=== PATIENT | female | born 1965 | race Caucasian/White ===

== ENCOUNTER 2020-01-28 06:45 | Outpatient (REF) | payer OTHER, SELFPAY ==
[2020-01-28 07:46] LABS: Hematocrit 42.7 % (37-47); Hemoglobin 14.4 g/dl (12.0-16.0); Mean Corpuscular HGB Conc 33.7 g/dl (31.0-35.0); Mean Corpuscular Hemoglobin 29.6 pg (27.0-33.0); Mean Corpuscular Volume 87.9 fL (80-98); Mean Platelet Volume 9.5 fL (9.4-12.3); Platelet Count 279 X10*3/uL (160-400); Red Blood Count 4.86 X10*6/uL (4.20-5.50); Red Cell Distribution Width 12.6 % (11.0-16.0); White Blood Count 5.5 X10*3/uL (4.8-10.8)
[2020-01-28 08:44] LABS: Alanine Aminotransferase 14 U/L (0-31); Albumin Level 4.4 g/dL (3.5-5.0); Alkaline Phosphatase 61 U/L (39-117); Anion Gap 12 (12-20); Aspartate Amino Transferase 15 U/L (5-31); Bilirubin Total 0.6 mg/dL (0.0-1.0); Blood Urea Nitrogen 15 mg/dL (9-16); Calcium 9.4 mg/dL (8.4-10.2); Carbon Dioxide 30 mmol/L (22-29); Chloride 103 mmol/L (96-108); Cholesterol 190 mg/dL; Estimated Glomerular Filt Rate > 60; Glucose Fasting 105 mg/dL (60-99); HDL Cholesterol 69 mg/dL; LDL Cholesterol Calculated 110 mg/dl; Potassium 4.9 mmol/l (3.3-5.1); Sodium 140 mmol/L (135-145); Total Protein 7.1 g/dL (6.5-8.0); Triglycerides 59 mg/dL
[2020-02-01 08:34] LABS: HIV AB/AG Nonreactive (Nonreactive); HIV Num 1 0.06 S/CO (0.00-0.99)
[2020-02-01 09:41] LABS: ~HepC Num1 0.12 S/CO (0.00-0.79); ~Hepatitis C Antibody Nonreactive (Nonreactive)
== END 2020-01-28 06:46 | disposition home or self-care (01) ==
LOC: HO.LAB 06:45
PROVIDERS: PCP Nurse Practitioner Family; Visit Provider Nurse Practitioner Family
DX: Z00.00 Encounter for general adult medical examination without abnormal findings (principal); Z11.4 Encounter for screening for human immunodeficiency virus [HIV]; E78.2 Mixed hyperlipidemia
CPT/HCPCS: 36415; 80053; 80061; 85027; 86803; 87389

== ENCOUNTER 2020-03-14 12:47 | Outpatient (REF) | payer OTHER, SELFPAY ==
--- NOTE | 2020-03-14 | MM_ITS ---
EXAMINATION: BONE DENSITOMETRY CLINICAL INDICATION: Estrogen excess. COMPARISON: This is the patient's baseline examination. TECHNIQUE: Using a [employer] ([employer] DXA System (software version: 13.1) manufactured by [employer], dual-energy x-ray absorptiometry was performed of the lumbar spine and left hip. The images are of good technical quality. Summary results are attached. FINDINGS: AP SPINE L1-L4: BMD 0.975 g/cm2, Z-score -1.1, T-score -1.7, osteopenia. LEFT FEMUR, NECK: BMD 0.624 g/cm2, Z-score -2.1, T-score -3.0, osteoporosis. LEFT FEMUR, TOTAL: BMD 0.602 g/cm2, Z-score -2.7, T-score -3.2, osteoporosis. IDENTIFIED RISK FACTORS: Low calcium intake, menopause. HISTORY OF FRACTURE: None listed. MEDICATIONS: None listed. MM/XR DEXA axial skeleton IMPRESSION: 1. DIAGNOSIS: Osteoporosis based on the lowest T-score value of -3.2 in the total femur applying World Health Organization criteria. 2. 10-YEAR FRACTURE RISK PREDICTION, FRAX: Major osteoporotic fracture (clinical spine, forearm, hip or shoulder) 11.9%. Hip fracture 3.2%. 3. Treatment Recommendations: NOF guidelines recommend consideration for treatment in postmenopausal women and men age 50 and older presenting with the following: -A hip or vertebral (clinical or morphometric) fracture. -T-score less than or equal to -2.5 at the femoral neck or spine after appropriate evaluation to exclude secondary causes. -Low bone mass at the hip or spine and a 10-year fracture probability by FRAX of greater than or equal to 3% for hip fracture or greater than or equal to 20% for major osteoporotic fracture based on the [place] adapted WHO algorithm. 4. Other Recommendations: All treatment decisions require clinical judgment and consideration of individual patient factors, including patient preferences, comorbidities, previous drug use, risk factors not captured in the FRAX model (e.g. frailty, falls, vitamin D deficiency, increased bone turnover, interval significant decline in bone density) and possible under or overestimation of fracture risk by FRAX. Additional medical evaluation for secondary cause of low bone mineral density may be appropriate. FUTURE SCAN RECOMMENDATION: People with diagnosed cases of osteoporosis or at high risk for fracture should have regular bone mineral density tests. For patients eligible for Medicare, routine testing is allowed once every 2 years. The testing frequency can be increased to one year for patients who have rapidly progressing disease, those who are receiving or discontinuing medical therapy to restore bone mass, or have additional risk factors.
--- NOTE | 2020-03-14 | MM_ITS ---
EXAMINATION: MM SCREENING DIGITAL BREAST TOMOSYNTHESIS, BILATERAL CLINICAL INFORMATION: Screening. Asymptomatic. The lifetime risk of breast cancer based on the Tyrer-Cuzick Model is 10%. COMPARISON: Mammography: 07/07/2018, 06/13/2017 TECHNIQUE: Digital breast tomosynthesis is performed in both the craniocaudal and mediolateral oblique views along with computer-aided detection (CAD). Synthesized 2D images are generated from the tomosynthesis. FINDINGS: There are scattered areas of fibroglandular density (ACR BI-RADS breast composition Category b). There are no significant masses, abnormal calcifications, or other abnormalities. Parenchymal pattern is similar to prior exams. No significant changes. MM/MM tomosynthesis screening BI IMPRESSION: No mammographic evidence of malignancy. ASSESSMENT: BI-RADS 1: Negative RECOMMENDATION: Routine annual mammography screening. This patient's information was entered into a reminder system with a target due date for their next mammogram.
== END 2020-03-14 12:48 | disposition home or self-care (01) ==
LOC: HO.MAMMO 12:47
PROVIDERS: PCP Nurse Practitioner Family; Visit Provider Nurse Practitioner Family
DX: E28.0 Estrogen excess (principal); Z12.31 Encounter for screening mammogram for malignant neoplasm of breast
CPT/HCPCS: 77063; 77067; 77080

== ENCOUNTER 2020-04-07 07:04 | Outpatient (REF) | payer OTHER, SELFPAY ==
[2020-04-07 08:15] LABS: Vitamin D 25-OH Total 22.4 ng/mL (>30)
== END 2020-04-07 07:05 | disposition home or self-care (01) ==
LOC: HO.LAB 07:04
PROVIDERS: PCP Nurse Practitioner Family; Visit Provider Nurse Practitioner Family
DX: M81.0 Age-related osteoporosis without current pathological fracture (principal)
CPT/HCPCS: 82306

== ENCOUNTER 2021-03-20 14:52 | Outpatient (REF) | payer OTHER, SELFPAY ==
--- NOTE | ~2021-03-20 | MM_ITS ---
EXAMINATION: MM SCREENING DIGITAL BREAST TOMOSYNTHESIS, BILATERAL CLINICAL INFORMATION: Screening. Asymptomatic. The lifetime risk of breast cancer based on the Tyrer-Cuzick Model is 9%. COMPARISON: Mammography: 03/14/2020, 07/07/2018, 06/13/2017 TECHNIQUE: Digital breast tomosynthesis is performed in both the craniocaudal and mediolateral oblique views along with computer-aided detection (CAD). Synthesized 2D images are generated from the tomosynthesis. FINDINGS: There are scattered areas of fibroglandular density (ACR BI-RADS breast composition Category b). There are no significant masses, abnormal calcifications, or other abnormalities. No developing density or significant changes from prior studies. MM/MM tomosynthesis screening BI IMPRESSION: No mammographic evidence of malignancy. ASSESSMENT: BI-RADS 1: Negative RECOMMENDATION: Routine annual mammography screening. This patient's information was entered into a reminder system with a target due date for their next mammogram.
== END 2021-03-20 14:53 | disposition home or self-care (01) ==
LOC: HO.MAMMO 14:52
PROVIDERS: Visit Provider Nurse Practitioner Family
DX: Z12.31 Encounter for screening mammogram for malignant neoplasm of breast (principal)
CPT/HCPCS: 77063; 77067

== ENCOUNTER 2021-05-18 06:51 | Outpatient (REF) | payer OTHER, SELFPAY ==
--- NOTE | ~2021-05-18 | XR_ITS ---
EXAMINATION: XR CERVICAL SPINE CLINICAL INFORMATION: Neck stiffness and pain. COMPARISON: None TECHNIQUE: 6 views of the cervical spine, inclusive of bilateral oblique views, were obtained. FINDINGS: There is mild curvature of the lower cervical and upper thoracic spine to the right. Bone alignment is otherwise normal. No fracture or dislocation is seen. There is mild degenerative spondylosis at C5-C6 and C6-C7. There is mild disc space narrowing at C6-C7. There is mild right-sided neuroforaminal narrowing from bony osteophyte at C6-C7. There is left-sided neuroforaminal narrowing from bony osteophyte at C4-C5 and C6-C7. Prevertebral soft tissues are normal. XR/XR cervical spine min 6V IMPRESSION: Scoliosis and degenerative changes.
[2021-05-18 07:04] LABS: MANUAL DIFF FLAG NO
[2021-05-18 07:27] LABS: Basophils Absolute Auto 0.1 X10*3/uL (0.0-0.2); Basophils Percent Auto 0.8 % (0-2); Eosinophils Absolute Auto 0.2 X10*3/uL (0.0-0.4); Hematocrit 44.7 % (37.0-47.0); Hemoglobin 14.9 g/dl (12.0-16.0); Imm Gran Abs Auto 0.02 X10*3/uL (0.00-0.03); Imm Gran Pct Auto 0.3 % (0.0-0.4); Lymphocytes Absolute Auto 1.4 X10*3/uL (1.2-4.9); Lymphocytes Percent Auto 18.9 % (20-40); Mean Corpuscular HGB Conc 33.3 g/dl (31.0-35.0); Mean Corpuscular Hemoglobin 29.2 pg (27.0-33.0); Mean Corpuscular Volume 87.6 fL (80.0-98.0); Mean Platelet Volume 9.3 fL (9.4-12.3); Monocytes Absolute Auto 0.7 X10*3/uL (0.1-1.2); Neutrophils Absolute Auto 5.1 x10*3/uL (2.0-8.3); Platelet Count 318 X10*3/uL (160-400); Red Cell Distribution Width 12.7 % (11.0-16.0); White Blood Count 7.4 X10*3/uL (4.8-10.8)
[2021-05-18 07:58] LABS: Alanine Aminotransferase 14 U/L (0-31); Albumin Level 4.2 g/dL (3.5-5.0); Alkaline Phosphatase 64 U/L (39-117); Anion Gap 13 (12-20); Aspartate Amino Transferase 16 U/L (5-31); Bilirubin Total 0.5 mg/dL (0.0-1.0); Blood Urea Nitrogen 17 mg/dL (9-16); Calcium 10.1 mg/dL (8.4-10.2); Carbon Dioxide 29 mmol/L (22-29); Chloride 101 mmol/L (96-108); Cholesterol 232 mg/dL; Estimated Glomerular Filt Rate > 60; Glucose Random 106 mg/dL (60-115); HDL Cholesterol 63 mg/dL; LDL Cholesterol Calculated 153 mg/dl; Potassium 5.6 mmol/L (3.3-5.1); Sodium 137 mmol/L (135-145); Total Protein 7.2 g/dL (6.5-8.0); Triglycerides 83 mg/dL
[2021-05-18 08:23] LABS: Thyroid Stimulating Hormone 1.44 uIU/mL (0.32-4.0)
[2021-05-18 09:45] LABS: Vitamin B12 389 pg/mL (200-900)
== END 2021-05-18 06:52 | disposition home or self-care (01) ==
LOC: HO.LAB 06:51
PROVIDERS: PCP Nurse Practitioner Family; Visit Provider Nurse Practitioner Family
DX: Z00.00 Encounter for general adult medical examination without abnormal findings (principal); E78.2 Mixed hyperlipidemia; R41.89 Other symptoms and signs involving cognitive functions and awareness; M43.6 Torticollis
CPT/HCPCS: 36415; 72052; 80053; 80061; 82607; 84443; 85025

== ENCOUNTER 2021-07-13 07:02 | Outpatient (REF) | payer OTHER, SELFPAY ==
[2021-07-13 08:33] LABS: Potassium 4.8 mmol/L (3.3-5.1)
== END 2021-07-13 07:03 | disposition home or self-care (01) ==
LOC: HO.LAB 07:02
PROVIDERS: PCP Nurse Practitioner Family; Visit Provider Nurse Practitioner Family
DX: E87.5 Hyperkalemia (principal)
CPT/HCPCS: 36415; 84132

== ENCOUNTER 2022-01-11 11:17 | Day surgery (SDC) | payer OTHER, SELFPAY ==
--- NOTE | 2022-01-11 13:42 | P.OP_ITS ---
Operative Note Operative Note Date of Service: 01/11/22 Narrative: Operative Note Preop diagnosis: 1. Right ring finger Trigger finger Postop diagnosis: 1. right ring finger Trigger finger Procedure: 1. right ring finger A1 britany release Surgeon: Hiral Payne MD Anesthesia: local block using 1% lidocaine with epinephrine Findings: No locking or catching after A1 britany release EBL: Less than 5 mL Tourniquet time: None Specimens: None Complications: None Disposition: Brought to recovery room in stable condition Plan: Follow-up for 10-14 days for wound check and suture removal Indications: The patient is 56 years old, with a right ring finger trigger finger that has been unresponsive to nonoperative management. The risks and benefits of operative treatment including but not limited to risk of damage to blood vessels, nerves, tendons, infection, persistent pain, persistent symptoms, recurrence or possible need for additional surgery were discussed with the patient and the patient wishes to proceed with surgery. Procedure: Once consent was obtained a local block was performed in the preop area using a combination of 1% lidocaine with epinephrine. The patient was then brought back to the operating suite and placed on the operative table in supine position. A tourniquet was applied to the proximal aspect of the right upper extremity and the limb was prepped and draped in a standard surgical fashion. Once assured that we had a good block, a 1.5 cm oblique incision was made centered over the A1 britany of the right ring finger . The incision was made through the skin to the subcutaneous tissues using a #15 blade. Careful dissection was made down to the level of the A1 britany using tenotomy scissors, with care being taken to protect the nearby neurovascular structures. A longitudinal incision was made in the A1 britany 1st using a #15 blade, then using tenotomy scissors under direct visualization. The A1 britany was noted to be thickened. Following our A1 britany release, we no longer saw any locking or catching of the digit with flexion and extension. Once satisfied with our A1 britany release the wound was copiously irrigated with normal saline and hemostasis was obtained with a brief period of local pressure. The skin edges were reapproximated with some 5.0 nylon suture material and a sterile dressing was applied. The patient appears to have tolerated the procedure well and with no c omplications. All digits were well vascularized at the conclusion of the case.
--- NOTE | 2022-01-11 13:42 | MHC.SHP ---
Pre-Procedural Eval Section A Date of Service: 01/11/22 The patient is an INPATIENT: No Changes since office visit: No Cold of Flu in the past 2 weeks, No New Medical Problems, No Changes in Medication and No Patient answered all questions The History & Physical has been completed within 30 days and I have reviewed it.: Yes Section B Chief Complaint: trigger finger Allergies: Allergies Allergy/AdvReac Type Severity Reaction Status Date / Time No Known Allergies Allergy Verified 01/10/22 09:39 Plan I have reviewed the history and physical and performed a pertinent physical examination on my patient. No changes have occurred unless specified.
[2022-01-11 15:27] VITALS: BP 145/71; PULSE 50; RESP 18; TEMP 36.2
== END 2022-01-11 15:28 | disposition home or self-care (01) ==
PROVIDERS: PCP Nurse Practitioner Family; Visit Provider Orthopaedic Surgery
PROC: (CPT 26055; principal; 2022-01-11 13:50)
DX: M65.341 Trigger finger, right ring finger (principal)
CPT/HCPCS: 26055; J0171

== ENCOUNTER 2022-03-22 15:36 | Outpatient (REF) | payer OTHER, SELFPAY ==
--- NOTE | ~2022-03-22 | MM_ITS ---
EXAMINATION: MM SCREENING DIGITAL BREAST TOMOSYNTHESIS, BILATERAL CLINICAL INFORMATION: Screening. Asymptomatic. The lifetime risk of breast cancer based on the Tyrer-Cuzick Model is 10.1%. COMPARISON: Mammography: March 20, 2021 and studies dating back to October 17, 2015 TECHNIQUE: Digital breast tomosynthesis is performed in both the craniocaudal and mediolateral oblique views along with computer-aided detection (CAD). Synthesized 2D images are generated from the tomosynthesis. FINDINGS: There are scattered areas of fibroglandular density (ACR BI-RADS breast composition Category b). There are no significant masses, abnormal calcifications, or other abnormalities. MM/MM tomosynthesis screening BI IMPRESSION: No significant changes from prior exam. ASSESSMENT: BI-RADS 1: Negative RECOMMENDATION: Routine annual mammography screening. This patient's information was entered into a reminder system with a target due date for their next mammogram.
== END 2022-03-22 15:37 | disposition home or self-care (01) ==
LOC: HO.MAMMO 15:36
PROVIDERS: PCP Nurse Practitioner Family; Visit Provider Nurse Practitioner Family
DX: Z12.31 Encounter for screening mammogram for malignant neoplasm of breast (principal)
CPT/HCPCS: 77063; 77067

== ENCOUNTER 2022-05-25 09:28 | Outpatient (REF) | payer OTHER, SELFPAY ==
--- NOTE | ~2022-05-25 | MM_ITS ---
EXAMINATION: BONE DENSITOMETRY CLINICAL INDICATION: Age-related osteoporosis without current pathological fracture. COMPARISON: Baseline BD dated 03/14/2020. TECHNIQUE: Using a [employer] DXA System (software version: 13.1) manufactured by [employer], dual-energy x-ray absorptiometry was performed of the lumbar spine and left hip. The images are of good technical quality. Summary results are attached. FINDINGS: AP SPINE L1-L4: Current: BMD 0.936 g/cm2, Z-score -1.4, T-score -2.0, osteopenia, 4.0% decrease from baseline (<5% change is not significant). Baseline: BMD 0.975 g/cm2. LEFT FEMUR, NECK: Current: BMD 0.837 g/cm2, Z-score -0.5, T-score -1.4, osteopenia. Baseline: BMD 0.624 g/cm2. LEFT FEMUR, TOTAL: Current: BMD 0.897 g/cm2, Z-score -0.3, T-score -0.9, normal, 49.0% increase from baseline (<5% change is not significant). Baseline: BMD 0.602 g/cm2. IDENTIFIED RISK FACTORS: Low calcium intake. Menopause. HISTORY OF FRACTURE: None listed. MEDICATIONS: Calcium supplement or multivitamin. Vitamin D. MM/XR DEXA axial skeleton IMPRESSION: 1. DIAGNOSIS: Osteopenia based on the lowest T-score value of -2.0 in the lumbar spine applying World Health Organization criteria. 2. 10-YEAR FRACTURE RISK PREDICTION, FRAX: Major osteoporotic fracture (clinical spine, forearm, hip or shoulder) 17.3%. Hip fracture 0.6%. 3. Treatment Recommendations: NOF guidelines recommend consideration for treatment in postmenopausal women and men age 50 and older presenting with the following: -A hip or vertebral (clinical or morphometric) fracture. -T-score less than or equal to -2.5 at the femoral neck or spine after appropriate evaluation to exclude secondary causes. -Low bone mass at the hip or spine and a 10-year fracture probability by FRAX of greater than or equal to 3% for hip fracture or greater than or equal to 20% for major osteoporotic fracture based on the [place] adapted WHO algorithm. 4. FUTURE SCAN RECOMMENDATION: People with diagnosed cases of osteoporosis or at high risk for fracture should have regular bone mineral density tests. For patients eligible for Medicare, routine testing is allowed once every 2 years. The testing frequency can be increased to one year for patients who have rapidly progressing disease, those who are receiving or discontinuing medical therapy to restore bone mass, or have additional risk factors.
== END 2022-05-25 09:29 | disposition home or self-care (01) ==
LOC: HO.MAMMO 09:28
PROVIDERS: Visit Provider Nurse Practitioner Family
DX: Z13.820 Encounter for screening for osteoporosis (principal); Z78.0 Asymptomatic menopausal state; M81.0 Age-related osteoporosis without current pathological fracture
CPT/HCPCS: 77080

== ENCOUNTER 2022-06-08 06:49 | Outpatient (REF) | payer OTHER, SELFPAY ==
[2022-06-08 07:33] LABS: Hematocrit 43.2 % (37.0-47.0); Hemoglobin 14.6 g/dl (12.0-16.0); Mean Corpuscular HGB Conc 33.8 g/dl (31.0-35.0); Mean Corpuscular Hemoglobin 29.3 pg (27.0-33.0); Mean Corpuscular Volume 86.7 fL (80.0-98.0); Mean Platelet Volume 9.5 fL (9.4-12.3); Platelet Count 278 X10*3/uL (160-400); Red Blood Count 4.98 X10*6/uL (4.20-5.50); White Blood Count 6.7 X10*3/uL (4.8-10.8)
[2022-06-08 08:06] LABS: Alanine Aminotransferase 14 U/L (0-31); Alkaline Phosphatase 69 U/L (39-117); Anion Gap 15 (12-20); Aspartate Amino Transferase 14 U/L (5-31); Bilirubin Total 0.6 mg/dL (0.0-1.0); Blood Urea Nitrogen 14 mg/dL (9-16); Calcium 9.2 mg/dL (8.4-10.2); Carbon Dioxide 25 mmol/L (22-29); Chloride 106 mmol/L (96-108); Cholesterol 182 mg/dL; Estimated Glomerular Filt Rate > 60; Glucose Fasting 103 mg/dL (60-99); HDL Cholesterol 64 mg/dL; LDL Cholesterol Calculated 105 mg/dl; Potassium 4.5 mmol/L (3.3-5.1); Sodium 141 mmol/L (135-145); Total Protein 6.7 g/dL (6.5-8.0); Triglycerides 67 mg/dL
[2022-06-08 08:27] LABS: Vitamin B12 465 pg/mL (200-900)
== END 2022-06-08 06:50 | disposition home or self-care (01) ==
LOC: HO.LAB 06:49
PROVIDERS: PCP Nurse Practitioner Family; Visit Provider Nurse Practitioner Family
DX: Z00.00 Encounter for general adult medical examination without abnormal findings (principal); E78.2 Mixed hyperlipidemia; E53.8 Deficiency of other specified B group vitamins
CPT/HCPCS: 36415; 80053; 80061; 82607; 85027

== ENCOUNTER → 2022-09-18 15:41 | Outpatient (BNVA) | payer OTHER, SELFPAY | PROVIDERS: PCP Nurse Practitioner Family; Visit Provider Orthopaedic Surgery ==

== ENCOUNTER 2023-03-28 15:14 | Outpatient (REF) | payer OTHER, SELFPAY ==
--- NOTE | ~2023-03-28 | MM_ITS ---
EXAMINATION: MM SCREENING DIGITAL BREAST TOMOSYNTHESIS, BILATERAL CLINICAL INFORMATION: Screening. Asymptomatic. COMPARISON: Mammography: 03/22/2022, 03/20/2021, 03/14/2020, 07/07/2018, 06/13/2017 TECHNIQUE: Digital breast tomosynthesis is performed in both the craniocaudal and mediolateral oblique views along with computer-aided detection (CAD). Synthesized 2D images are generated from the tomosynthesis. FINDINGS: There are scattered areas of fibroglandular density (ACR BI-RADS breast composition Category b). There are bilateral skin calcifications. These are benign. There are no suspicious masses, suspicious grouped calcifications, or areas of architectural distortion in either breast. The parenchymal pattern is stable from prior exams. Unchanged left axillary lymph node. No skin abnormality. MM/MM tomosynthesis screening BI IMPRESSION: No mammographic evidence of malignancy. Benign findings. ASSESSMENT: BI-RADS BI-RADS 2 - Benign Findings RECOMMENDATION: Routine annual mammography screening. 1 year F/U This examination should not preclude the clinical evaluation of a suspicious palpable abnormality. This patient's information was entered into a reminder system with a target due date for their next mammogram.
== END 2023-03-28 15:15 | disposition home or self-care (01) ==
LOC: HO.MAMMO 15:14
PROVIDERS: PCP Nurse Practitioner Family; Visit Provider Nurse Practitioner Family
DX: Z12.31 Encounter for screening mammogram for malignant neoplasm of breast (principal)
CPT/HCPCS: 77063; 77067

== ENCOUNTER → 2023-03-28 15:30 | Outpatient (BNV) | payer OTHER, SELFPAY | PROVIDERS: PCP Nurse Practitioner Family; Visit Provider Radiology Diagnostic Radiology | DX: Z12.31 Encounter for screening mammogram for malignant neoplasm of breast (principal) | CPT/HCPCS: 77063; 77067 ==

== ENCOUNTER 2023-11-27 08:51 | Outpatient (AMB) | payer OTHER, SELFPAY ==
--- NOTE | 2023-11-27 08:55 | MHC.PC.OV ---
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 Intake Note: New patient visit Central Supply Manager Required: No Allergies No Known Allergies Allergy (Verified 11/27/23 08:55) Medication List - Last Reconciled 11/27/23 by Leann Ortega PA-C atorvastatin 10 mg PO DAILY Tobacco use date assessed: 11/27/23 Dental Screening Dental Screen Date: 11/27/23 Did you have a dental visit in the last 12 months?: Yes Did you have a dental problem in the last 6 months where you did not have access to dental care?: No Was dental information given to patient?: Patient has dentist 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 She has a hx of dyslipidemia, anxiety and depression. CV: bp today is. She is on atorvastatin 10 mg and has been on this for a couple years. She tolerates this well. Psych: She is on lexapro 20 mg. Tried fluoxetine, sertraline and these were ineffective. She feels like lexapro takes the edge off but it was not perfect . It did not control her sx as much as she wouldve liked. Colonoscopy: Dr. Childs, 02/2016 had a polyp- recommended for q 5 years. Mammo: 04/13, UTD Pap: 1 year ago Bone density:osteopenia- over 2 years ago Brother lung ca (smoker)- brother #2 bladder ca, hep c, and prostate ca, carotid stenosis Father crust stenosis PFSH Medical History (Updated 11/27/23 @ 10:30 by Leann Ortega PA-C) Depression GERD (gastroesophageal reflux disease) Heart palpitations Anxiety High cholesterol Family History (Updated 11/27/23 @ 09:44 by Irish Fleming CMA) Father High cholesterol Mother Cardiovascular disease Other Bladder cancer Diabetes Lung cancer Prostate cancer Social History (Updated 11/27/23 @ 09:45 by Irish Fleming CMA) Housing: House Patient Tobacco Use Status: Former Tobacco user Cigarettes Per Day: 5 Years Smoked: 8 e-Cigarette/Vaping Use: Never Used service: No Current occupational status: employed Current occupation: [employer] in [employer]/ [employer] Current occupational exposures/hazards: No Cognitive needs: No Hearing needs: No Vision needs: Yes (reading glasses) Questionnaire PHQ-9 Over the last 2 weeks, how often have you been bothered by any of the following problems? 1. Little interest or pleasure in doing things: several days 2. Feeling down, depressed, or hopeless: several days 3. Trouble falling or staying asleep, or sleeping too much: several days 4. Feeling tired or having little energy: more than half the days 5. Poor appetite or overeating: more than half the days 7. Trouble concentrating on things, such as reading the newspaper or watching television: more than half the days 8. Moving or speaking so slowly that other people could have noticed. Or the opposite - being so fidgety or restless that you have been moving around a lot more than usual: several days 9. Thoughts that you would be better off or of hurting yourself in some way: not at all Depression Screening Interpretation: Positive Depression Screening Follow-up: Existing condition, In treatment and New Medication prescribed Depression Screening Done: Yes 83561 - PHQ-9 Billing: Yes Source: Developed by Drs. Hector Stroud, Herminia Bullard, Gigi Tsang and colleagues, with an educational april from [employer]. Thrive Questionnaire Date Thrive assessed: 11/27/23 I am a: Patient What is your living situation today?: I have a steady place to live Within the past 12 months, did the food you bought not last and you didn't have the money to get more?: Never true Within the past 12 months, did you worry whether your food would run out before you got money to buy more?: Never true Do you have trouble paying for medicines?: No Do you have trouble getting transportation to medical appointments?: No Do you have trouble paying your heating and electricity bill?: No Do you have trouble taking care of your child, family member or friend?: No Do you have trouble with day-to-day activities such as bathing, preparing meals, shopping, managing finances, etc.?: No Are you currently unemployed and looking for a job?: No Are you interested in more education?: No Please select the resources that you would like help with: None Currently or been in a relationship where the following occur: No concerns reported THRIVE Score: 0 AUDIT C Alcohol Use Questionnaire (AUDIT-C) 1. How often do you have a drink containing alcohol?: 2-3 times a week 2. How many drinks containing alcohol do you have on a typical day when you are drinking?: 1 or 2 3. How often do you have six or more drinks on one occasion?: Never Total Score: 3 JORDAN-7 AMB Questionnaire JORDAN-7 Date JORDAN - 7 assessed: 11/27/23 Feeling nervous, anxious, or on edge: 2 = More than half the days Not being able to stop or control worryin = Several days Worrying too much about different things: 1 = Several days Trouble relaxin = More than half the days Being so restless that it is hard to sit still: 1 = Several days Becoming easily annoyed or irritable: 1 = Several days Feeling afraid as if something awful might happen: 0 = Not at all Total JORDAN-7 score (0-4 normal; 5-9 mild; 10-14 moderate; 15-21 severe): 8 Source: Developed by Drs. Hector Stroud, Herminia Bullard, Gigi Tsang and colleagues, with an educational april from [employer]. JORDAN-7 Assessment Billing JORDAN-7 Assessment Tool: JORDAN-7 Assessment 36803 Physical exam (Primary Care) Vital Signs: Last Vital Signs Temp 97.8 F 11/27/23 09:04 Pulse 68 11/27/23 09:04 Resp 16 11/27/23 09:04 BP 126/72 11/27/23 09:04 Pulse Ox 97 11/27/23 09:04 Oxygen Delivery Method Room Air 11/27/23 09:04 BMI result Body Mass Index 35.5 Tobacco/Smoking Status: Tobacco use Status Tobacco use date assessed 11/27/23 11/27/23 08:57 Patient Tobacco Use Status Former Tobacco user 11/27/23 09:45 e-Cigarette/Vaping Use Never Used 11/27/23 09:45 Depression Screening Interpretation: Positive Depression Screening Follow-up: Existing condition, In treatment and New Medication prescribed Thrive Assessment: Date of Thrive Assessment Date Thrive assessed 11/27/23 11/27/23 09:45 Currently or been in a relationship where the following occur: No concerns reported Const Orientation/consciousness: patient oriented x3 HENMT Ears: hearing grossly normal bilaterally and TM's normal bilaterally General nose exam: No nasal polyps present Face and sinus: Yes sinuses nontender Mouth: Normal oral and palatal mucosa present Eyes Pupils: Equal, round and reactive pupils present EOM: EOMs intact bilaterally Neck Neck: Yes full ROM and Yes no lymphadenopathy Thyroid: Thyroid normal Chest Chest palpation & inspection: normal inspection of the chest Resp Auscultation: clear to auscultation bilaterally Cardio Rate: regular rate Rhythm: regular rhythm Heart sounds: S1 normal heart sound present and S2 normal heart sound present Peripheral pulses: Peripheral pulses 2+ throughout GI Other: Soft, nontender Auscultation: normal bowel sounds Rectal Exam - Female: deferred General: Yes no CVA tenderness Back/Spine/Pelvis Other: Nontender Back: no CVA tenderness Skin General skin exam: no rashes or lesions noted Neuro General: patient oriented x3, gait normal, CN's II-XI intact bilaterally and deep tendon reflexes 2+ bilaterally Cranial nerves: Yes Equal, round and reactive pupils present Motor exam (neuro): 5/5 motor strength present throughout Sensory Exam: double simultaneous stimulation for sensation normal Coordination: [id number] test normal and Romberg test negative Extrem General: Yes normal to inspection and Yes full ROM Psych Affect: normal affect Attitude: cooperative Thought process: Normal thought process present Thought content: Normal thought content present Insight: Good insight present (Psych) Judgement: Good judgement present (Psych) Assessment and Plan Assessment & Plan (1) Routine general medical examination at a health care facility: Code(s): Z00.00 - Encounter for general adult medical examination without abnormal findings Plan: Health maintenance reviewed. Colonoscopy ordered. Labs ordered today. (2) Generalized anxiety disorder: Code(s): F41.1 - Generalized anxiety disorder Plan: We will try Effexor. Discussed risks and benefits and adverse effects of this medication. Advised to seek emergent medical treatment should she develop any SI/HI. Follow up in 4 weeks. Sooner if needed. Patient understands and agrees with the plan. (3) Major depressive disorder, recurrent, mild: Code(s): F33.0 - Major depressive disorder, recurrent, mild Plan: As above (4) Osteopenia: Code(s): M85.80 - Other specified disorders of bone density and structure, unspecified site Qualifiers: Osteopenia location: unspecified Qualified Code(s): M85.80 - Other specified disorders of bone density and structure, unspecified site Plan: Bone density ordered. (5) Hypercholesteremia: Code(s): E78.00 - Pure hypercholesterolemia, unspecified Plan: Continue atorvastatin. Lipids and LFTs ordered. Orders: Orders XR DEXA axial skeleton Today Z78.0 - Asymptomatic menopausal state Comprehensive [place]. Panel Fast Today E78.00 - Pure hypercholesterolemia, unspecified, F41.1 - Generalized anxiety disorder, M85.80 - Other specified disorders of bone density and structure, unspecified site, Z00.00 - Encounter for general adult medical examination without abnormal findings TSH reflex Free T4 Today E78.00 - Pure hypercholesterolemia, unspecified, F41.1 - Generalized anxiety disorder, M85.80 - Other specified disorders of bone density and structure, unspecified site, Z00.00 - Encounter for general adult medical examination without abnormal findings Vitamin D 1,25 dihydroxy Today E78.00 - Pure hypercholesterolemia, unspecified, F41.1 - Generalized anxiety disorder, M85.80 - Other specified disorders of bone density and structure, unspecified site, Z00.00 - Encounter for general adult medical examination without abnormal findings Lipid Panel Today E78.00 - Pure hypercholesterolemia, unspecified, F41.1 - Generalized anxiety disorder, M85.80 - Other specified disorders of bone density and structure, unspecified site, Z00.00 - Encounter for general adult medical examination without abnormal findings Complete Blood Count Auto Diff Today E78.00 - Pure hypercholesterolemia, unspecified, F41.1 - Generalized anxiety disorder, M85.80 - Other specified disorders of bone density and structure, unspecified site, Z00.00 - Encounter for general adult medical examination without abnormal findings Referrals Open Access Screening Colonoscopy Referral Z12.11 - Encounter for screening for malignant neoplasm of colon, Z12.12 - Encounter for screening for malignant neoplasm of rectum Medications: New venlafaxine ER (Effexor XR) 37.5 mg PO DAILY 30 caps 1RF Coding Level of Care Code New Pt Prev Care 40-64y(65815) Diagnoses Routine general medical examination at a health care facility Z00.00 Generalized anxiety disorder F41.1 Major depressive disorder, recurrent, mild F33.0 Osteopenia, unspecified location M85.80 Osteopenia location: unspecified Hypercholesteremia E78.00 Additional Codes JORDAN-7 Assessment Billing - JORDAN-7 Assessment Tool: JORDAN-7 Assessment 28695 ([id number])
[2023-11-27 09:04] VITALS: BP 126/72; PULSE 68; RESP 16; TEMP 36.6; O2SAT 97; BMI 35.5
== END 2023-11-27 09:58 | disposition home or self-care (01) ==
PROVIDERS: Visit Provider Physician Assistant
DX: Z00.00 Encounter for general adult medical examination without abnormal findings (principal); F41.1 Generalized anxiety disorder; F33.0 Major depressive disorder, recurrent, mild; M85.80 Other specified disorders of bone density and structure, unspecified site; E78.00 Pure hypercholesterolemia, unspecified
CPT/HCPCS: 96127; 99386

== ENCOUNTER 2023-12-04 07:14 | Outpatient (REF) | payer OTHER, SELFPAY ==
[2023-12-04 07:31] LABS: MANUAL DIFF FLAG NO
[2023-12-04 07:48] LABS: Basophils Absolute Auto 0.1 X10*3/uL (0.0-0.2); Basophils Percent Auto 0.8 % (0-2); Eosinophils Absolute Auto 0.2 X10*3/uL (0.0-0.4); Eosinophils Percent Auto 2.9 % (0-4); Hematocrit 43.5 % (37.0-47.0); Hemoglobin 14.8 g/dl (12.0-16.0); Imm Gran Abs Auto 0.02 X10*3/uL (0.00-0.03); Imm Gran Pct Auto 0.3 % (0.0-0.4); Lymphocytes Absolute Auto 1.3 X10*3/uL (1.2-4.9); Lymphocytes Percent Auto 21.7 % (20-40); Mean Corpuscular Hemoglobin 29.4 pg (27.0-33.0); Mean Corpuscular Volume 86.3 fL (80.0-98.0); Mean Platelet Volume 9.2 fL (9.4-12.3); Monocytes Absolute Auto 0.5 X10*3/uL (0.1-1.2); Monocytes Percent Auto 8.6 % (2-11); Neutrophils Absolute Auto 3.9 x10*3/uL (2.0-8.3); Neutrophils Percent Auto 65.7 % (45-73); Platelet Count 279 X10*3/uL (160-400); Red Blood Count 5.04 X10*6/uL (4.20-5.50); Red Cell Distribution Width 12.9 % (11.0-16.0); White Blood Count 5.9 X10*3/uL (4.8-10.8)
[2023-12-04 08:08] LABS: Alanine Aminotransferase 21 U/L (0-31); Albumin Level 3.9 g/dL (3.5-5.0); Alkaline Phosphatase 65 U/L (39-117); Anion Gap 12 (12-20); Aspartate Amino Transferase 17 U/L (5-31); Bilirubin Total 0.6 mg/dL (0.0-1.0); Blood Urea Nitrogen 15 mg/dL (9-16); Calcium 9.6 mg/dL (8.4-10.2); Carbon Dioxide 27 mmol/L (22-29); Chloride 105 mmol/L (96-108); Cholesterol 164 mg/dL (<200); Estimated Glomerular Filt Rate > 60; Glucose Fasting 111 mg/dL (60-99); HDL Cholesterol 54 mg/dL (>40); LDL Cholesterol Calculated 100 mg/dL (<100); Potassium 4.6 mmol/L (3.3-5.1); Sodium 139 mmol/L (135-145); Total Protein 7.1 g/dL (6.5-8.0); Triglycerides 53 mg/dL (<150)
[2023-12-04 08:28] LABS: TSH reflex Free T4 1.17 uIU/mL (0.32-4.0)
[2023-12-09 15:08] LABS: VITAMIN D (1,25 OH) D3 26 pg/mL; Vit D (1,25-Dihydroxy) Total 26 pg/mL (18-72); Vitamin D (1,25 OH) D2 <8 pg/mL
== END 2023-12-04 07:15 | disposition home or self-care (01) ==
LOC: HO.LAB 07:14
PROVIDERS: PCP Physician Assistant; Visit Provider Physician Assistant
DX: Z00.00 Encounter for general adult medical examination without abnormal findings (principal); F41.1 Generalized anxiety disorder; M85.80 Other specified disorders of bone density and structure, unspecified site; E78.00 Pure hypercholesterolemia, unspecified
CPT/HCPCS: 36415; 80053; 80061; 82652; 84443; 85025

== ENCOUNTER 2023-12-18 06:56 | Outpatient (REF) | payer OTHER, SELFPAY ==
[2023-12-18 09:03] LABS: Estimated Average Glucose 114 mg/dL; Hemoglobin A1c % 5.6 % (<6.0)
== END 2023-12-18 06:57 | disposition home or self-care (01) ==
LOC: HO.LAB 06:56
PROVIDERS: PCP Physician Assistant; Visit Provider Physician Assistant
DX: R73.9 Hyperglycemia, unspecified (principal)
CPT/HCPCS: 36415; 83036

== ENCOUNTER 2023-12-25 15:05 | Outpatient (AMB) | payer OTHER, SELFPAY ==
[2023-12-25 15:25] VITALS: BP 104/64; PULSE 78; RESP 14; O2SAT 98; BMI 36.0
--- NOTE | 2023-12-25 15:25 | A.OFFPC_ITS ---
Vital Signs 12/25/23 15:25 Height 5 ft 0.63 in Weight 188 lb 4 oz BMI 36.0 BP 104/64 Blood Pressure Location Lt brachial Position Sitting Respiration 14 Pulse 78 Pulse Source Pulse Oximeter Pulse Oximetry (%) 98 Oxygen Delivery Method Room Air Intake Visit Reasons: Anxiety follow-up Intake Note: Anxiety follow up Model And Dye Person Required: No Allergies No Known Allergies Allergy (Verified 12/25/23 15:25) Tobacco use date assessed: 11/27/23 Dental Screening Dental Screen Date: 11/27/23 HPI Anxiety follow-up HPI Details Pt is a 58 y/o female who presents today to establish care and transferring today from [facility]. She has a hx of dyslipidemia, anxiety and depression. CV: bp today is 104/64. She is on atorvastatin 10 mg and has been on this for a couple years. She tolerates this well. Psych: At our last visit started her on venlafaxine. She states for the 1st 2 weeks she felt like this was helpful but now it just does not feel like it is doing much of anything. She tolerates it well. No SI/HI. Tried Lexapro, fluoxetine, sertraline and these were ineffective. She feels like lexapro takes the edge off but it was not perfect . It did not control her sx as much as she wouldve liked. Colonoscopy: Dr. Childs, 02/2016 had a polyp- recommended for q 5 years. Mammo: 04/13, UTD Pap: 1 year ago Bone density:osteopenia- over 2 years [facility] Medical History (Updated 12/04/23 @ 15:47 by Leann Ortega PA-C) Depression GERD (gastroesophageal reflux disease) Heart palpitations Anxiety High cholesterol Family History (Updated 11/27/23 @ 09:44 by Irish Fleming CMA) Father High cholesterol Mother Cardiovascular disease Other Bladder cancer Diabetes Lung cancer Prostate cancer Social History (Updated 11/27/23 @ 09:45 by Irish Fleming CMA) Housing: House Patient Tobacco Use Status: Former Tobacco user Cigarettes Per Day: 5 Years Smoked: 8 e-Cigarette/Vaping Use: Never Used service: No Current occupational status: employed Current occupation: [employer] in [employer]/ [employer] Current occupational exposures/hazards: No Cognitive needs: No Hearing needs: No Vision needs: Yes (reading glasses) Questionnaire PHQ-9 Over the last 2 weeks, how often have you been bothered by any of the following problems? 1. Little interest or pleasure in doing things: more than half the days 2. Feeling down, depressed, or hopeless: nearly every day 3. Trouble falling or staying asleep, or sleeping too much: not at all 4. Feeling tired or having little energy: more than half the days 5. Poor appetite or overeating: not at all 6. Feeling bad about yourself - or that you are a failure or have let yourself or your family down: not at all 7. Trouble concentrating on things, such as reading the newspaper or watching television: more than half the days 8. Moving or speaking so slowly that other people could have noticed. Or the opposite - being so fidgety or restless that you have been moving around a lot more than usual: not at all 9. Thoughts that you would be better off or of hurting yourself in some way: not at all Total score: 9 Depression Screening Interpretation: Positive Depression Screening Done: Yes 31888 - PHQ-9 Billing: Yes Source: Developed by Drs. Hector Stroud, Herminia Bullard, Gigi Tsang and colleagues, with an educational april from [employer]. Thrive Questionnaire Date Thrive assessed: 11/27/23 JORDAN-7 AMB Questionnaire JORDAN-7 Date JORDAN - 7 assessed: 12/25/23 Feeling nervous, anxious, or on edge: 3 = Nearly every day Not being able to stop or control worryin = More than half the days Worrying too much about different things: 2 = More than half the days Trouble relaxin = Nearly every day Being so restless that it is hard to sit still: 1 = Several days Becoming easily annoyed or irritable: 2 = More than half the days Feeling afraid as if something awful might happen: 1 = Several days Total JORDAN-7 score (0-4 normal; 5-9 mild; 10-14 moderate; 15-21 severe): 14 Source: Developed by Drs. Hector Stroud, Herminia Bullard, Gigi Tsang and colleagues, with an educational april from [employer]. JORDAN-7 Assessment Billing JORDAN-7 Assessment Tool: JORDAN-7 Assessment 28937 Physical exam (Primary Care) Vital Signs: Last Vital Signs Pulse 78 12/25/23 15:25 Resp 14 12/25/23 15:25 BP 104/64 12/25/23 15:25 Pulse Ox 98 12/25/23 15:25 Oxygen Delivery Method Room Air 12/25/23 15:25 BMI result Body Mass Index 36.0 Tobacco/Smoking Status: Tobacco use Status Tobacco use date assessed 11/27/23 12/25/23 15:27 Patient Tobacco Use Status Former Tobacco user 12/25/23 15:27 e-Cigarette/Vaping Use Never Used 12/25/23 15:27 PHQ-9: PHQ-9 Score PHQ-9: Total score 9 12/25/23 15:33 Depression Screening Interpretation: Positive Thrive Assessment: Date of Thrive Assessment Date Thrive assessed 11/27/23 12/25/23 15:27 Const Orientation/consciousness: patient oriented x3 HENMT Ears: hearing grossly normal bilaterally Neck Thyroid: Thyroid normal Lymphatic: no lymphadenopathy noted Resp Auscultation: clear to auscultation bilaterally Cardio Rate: regular rate Rhythm: regular rhythm Heart sounds: S1 normal heart sound present and S2 normal heart sound present GI Inspection: Yes normal to inspection Palpation (GI): Soft to palpation and Other GI palpation findings present (nontender, no cva tenderness) Auscultation: normoactive bowel sounds Rectal Exam - Female: deferred Skin General skin exam: no rashes or lesions noted Neuro General: patient oriented x3, gait normal and no focal motor deficits Results Reviewed Results Reviewed: Laboratory Tests 12/04/23 12/18/23 07:30 07:04 WBC 5.9 RBC 5.04 Hgb 14.8 Plt Count 279 Creatinine 0.79 Estimated GFR > 60 Estimat Average Glucose 114 Hemoglobin A1c % 5.6 AST 17 ALT 21 Triglycerides 53 Cholesterol 164 LDL Cholesterol, Calc 100 H HDL Cholesterol 54 Assessment and Plan Assessment & Plan (1) Major depressive disorder, recurrent, mild: Code(s): F33.0 - Major depressive disorder, recurrent, mild Plan: We will increase dosage. She will let me know if she does in the next couple weeks. If anything worsens or changes she will call me. Patient understands and agrees with the plan. Medications: New venlafaxine ER 75 mg PO DAILY 30 caps 1RF Discontinued venlafaxine ER Discontinued Reason: Doctor's Order 37.5 mg PO DAILY 90 caps 1RF Coding Level of Care Code Est Pt Level 3 (54629) Diagnoses Major depressive disorder, recurrent, mild F33.0 Additional Codes JORDAN-7 Assessment Billing - JORDAN-7 Assessment Tool: JORDAN-7 Assessment 18935 ([id number])
== END 2023-12-25 15:54 | disposition home or self-care (01) ==
PROVIDERS: PCP Physician Assistant; Visit Provider Physician Assistant
DX: F33.0 Major depressive disorder, recurrent, mild (principal)
CPT/HCPCS: 96127; 99213

== ENCOUNTER 2024-04-03 13:20 | Outpatient (REF) | payer OTHER, SELFPAY ==
--- NOTE | ~2024-04-03 | MM_ITS ---
EXAMINATION: MM SCREENING DIGITAL BREAST TOMOSYNTHESIS, BILATERAL CLINICAL INFORMATION: Screening. Asymptomatic. COMPARISON: Mammography: Comparison is made with available priors TECHNIQUE: Digital breast mammography with tomosynthesis is performed in both the craniocaudal and mediolateral oblique views along with computer-aided detection (CAD). FINDINGS: There are scattered areas of fibroglandular density (ACR BI-RADS breast composition Category b). There are no significant masses, abnormal calcifications, or other abnormalities. MM/MM tomosynthesis screening BI IMPRESSION: No mammographic evidence of malignancy. ASSESSMENT: BI-RADS BI-RADS 1 - Negative RECOMMENDATION: Routine annual mammography screening. 1 year F/U This examination should not preclude the clinical evaluation of a suspicious palpable abnormality. This patient's information was entered into a reminder system with a target due date for their next mammogram. Electronically signed by: Sravani Walton DO 04/03/2024 01:47 PM [facility]
--- OUTSIDE RECORDS SUMMARY | 2024-04-03 13:22 | XMS_ITS | Patient Health Record ---
Author Organization [facility] [employer] Address [address] [place] [address] Care Team Providers Care Aed Trainer Name Role Phone Cinda PERRY, Christal Primary Care Provider Nesha Jarquin Unavailable [phone] Allergies No Known Allergies Reason For Referral No Information Medications Medication SIG (Take, Route, Frequency, Duration) Notes Start Date End Date Status FLUoxetine HCl 20 MG 1 capsule Orally On ce a day for 30 day(s) Active buPROPion HCl 100 MG 3 tablet Orally Active Nightsplint . . . AFO - L1930 for . Active Atorvastatin Calcium 10 MG 1 tablet Oral ly Once a day for 30 day(s) Active Vitamin D 50 MCG (1999 UT) 1 tablet Oral ly Once a day for 30 day(s) Active Calcium 500 MG 1 tablet with meals Orally Twice a day for 30 day(s) Active Immunizations Vaccine Route Administration Date Status Comme nts COVID-19 Pfizer BioNTech Vaccine Unknown 04/08/2020 Administered Second Dose: 05/01/2020 Social History Tobacco Use: Social History Observation Description Date Details (start date - stop date) Former Smoker NA - NA Tobacco Use/Smoking Question Answer Notes Are you a: former smoker Additional Findings: Tobacco Non-User Aggressive non-smoker Alcohol Screen Question Answer Notes Did you have a drink containing alcohol in the p ast year? Yes Points 0 Interpretation Negative Tobacco use other than smoking: Question Answer Notes Are you an other tobacco user? No Problems Problem Type SNOMED Code ICD Code Onset Dates Problem Status W/U Status Risk Notes Problem [id number] Osteoarthritis o f right ankle and foot (M19.071) Active confirmed Problem [id number] Osteoarthritis o f left ankle and foot (M19.072) Active confirmed Plan Of Treatment Pending Test Test Name Order Date X ray : Foot, left 3V 08/16/2020 X ray : Foot, right 3V 08/16/2020 [id number] TENDON SHEATH/LIGAMENT 0 10/12/2020 Insurance Providers Payer Name Payer Address Payer Phone Subscriber Number Group Number Insured Name Patient Relationship to Insured Coverage Start Date Coverage End Date [employer] Benefits [address] [address] [place] [address] [id number] Marina Gonzalez Self - patient is the insured Medical (General) History Medical History History ICD Code Depression Chicken pox Surgical History Surgery Date(Month/Year)
== END 2024-04-03 13:21 | disposition home or self-care (01) ==
LOC: HO.MAMMO 13:20
PROVIDERS: PCP Physician Assistant; Visit Provider Physician Assistant
DX: Z12.31 Encounter for screening mammogram for malignant neoplasm of breast (principal)
CPT/HCPCS: 77063; 77067

== ENCOUNTER → 2024-04-03 15:15 | Outpatient (BNV) | payer OTHER, SELFPAY | PROVIDERS: PCP Physician Assistant; Visit Provider Internal Medicine | DX: Z12.31 Encounter for screening mammogram for malignant neoplasm of breast (principal) | CPT/HCPCS: 77063; 77067 ==

== ENCOUNTER → 2024-05-27 10:24 | Outpatient (REF) | payer OTHER, SELFPAY ==
--- NOTE | ~2024-05-27 | MM_ITS ---
EXAMINATION: DXA BONE DENSITY AXIAL HISTORY: Estrogen deficiency TECHNIQUE: Seawind Dual energy absorptiometry (DEXA) of the lumbar spine, total left hip, and femoral neck was performed. COMPARISON: Comparison is made with the prior examination dated 05/25/2022. FINDINGS: The bone mineral density of the lumbar spine is 0.892 with a T-score of -2.4, and a Z-score of -1.6. This represents a BMD change of -4.7% compared to the prior exam. This is statistically significant. The bone mineral density of the left total hip is 0.887 with a T-score of -1.0, and a Z-score of -0.3. This represents BMD change of -1.1% compared to the prior exam. This is not statistically significant. The bone mineral density of the left femoral neck is 0.850 with a T-score of -1.4, and a Z-score of -0.4. This represents BMD change of 1.6% compared to the prior exam. FRACTURE RISK: The FRAX index suggests a ten year probability of major osteoporotic fracture of 7.5%, and of hip fracture 0.6%. MM/XR DEXA axial skeleton IMPRESSION: Based on bone mineral density, and according to World Health Organization (WHO) criteria, the diagnosis is consistent with osteopenia. All bone density values are in grams per centimeter squared (g/cm2). Statistically, 68% of repeat scans fall within 1 SD (+/- 0.010 g/cm2 for AP spine L1-L4) and 1 SD (+/- 0.012 g/cm2 for femur total) FRAX is a trademark of the [employer]'s [place] [facility] Metabolic Bone Disease, a World Health Organization (WHO) Collaborating Center. Electronically signed by: Hector Lozano MD 05/28/2024 08:07 AM [facility]
== END | disposition home or self-care (01) ==
LOC: HO.MAMMO 10:24
PROVIDERS: PCP Physician Assistant; Visit Provider Physician Assistant
DX: Z13.820 Encounter for screening for osteoporosis (principal); Z78.0 Asymptomatic menopausal state
CPT/HCPCS: 77080

== ENCOUNTER → 2024-05-27 10:30 | Outpatient (BNV) | payer OTHER, SELFPAY | PROVIDERS: PCP Physician Assistant; Visit Provider Radiology Diagnostic Radiology | DX: M85.89 Other specified disorders of bone density and structure, multiple sites (principal); Z78.0 Asymptomatic menopausal state | CPT/HCPCS: 77080 ==

== ENCOUNTER 2024-07-01 08:39 | Outpatient (AMB) | payer OTHER, SELFPAY ==
--- NOTE | 2024-07-01 08:45 | A.OFFPC_ITS ---
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 Does complain today of fluid in her ears. Denies any ear pain. Times it does sound muffled but no sudden hearing loss. This has been going on for the last month. At times it does make her feel a little dizzy. No sinus pain or pressure. No fevers or chills. No headaches or vision changes. CV: bp today is 126/68. Cholesterol is managed with atorvastatin. Psych: Recently started on venlafaxine and doing really well with this. Denies any SI/HI. She tolerates it well. No SI/HI. Tried Lexapro, fluoxetine, sertraline and these were ineffective. She feels like lexapro takes the edge off but it was not perfect . It did not control her sx as much as she wouldve anahi carney. Colonoscopy: Dr. Childs, 02/2016 had a polyp- recommended for q 5 years.-was referred. Never heard. Mammo: 04/14, UTD Pap: 1 year ago Bone density:osteopenia- 2023 [facility] Medical History (Updated 07/01/24 @ 09:47 by Leann Ortega PA-C) Depression GERD (gastroesophageal reflux disease) Heart palpitations Anxiety High cholesterol Surgical History No pertinent past surgical history Family History Father High cholesterol Mother Cardiovascular disease Other Bladder cancer Diabetes Lung cancer Prostate cancer Social History (Updated 07/01/24 @ 08:59 by Irish Fleming CMA) Housing: House Alcohol intake: current Patient Tobacco Use Status: Former Tobacco user Cigarettes Per Day: 5 Years Smoked: 8 e-Cigarette/Vaping Use: Never Used service: No Current occupational status: employed Current occupation: [employer]/ [employer] Current occupational exposures/hazards: No Cognitive needs: No Hearing needs: No Vision needs: Yes (reading glasses) Questionnaire PHQ-9 Over the last 2 weeks, how often have you been bothered by any of the following problems? 1. Little interest or pleasure in doing things: not at all 2. Feeling down, depressed, or hopeless: not at all 3. Trouble falling or staying asleep, or sleeping too much: not at all 4. Feeling tired or having little energy: several days 5. Poor appetite or overeating: not at all 6. Feeling bad about yourself - or that you are a failure or have let yourself or your family down: not at all 7. Trouble concentrating on things, such as reading the newspaper or watching television: several days 8. Moving or speaking so slowly that other people could have noticed. Or the opposite - being so fidgety or restless that you have been moving around a lot more than usual: not at all 9. Thoughts that you would be better off or of hurting yourself in some way: not at all Total score: 2 Depression Screening Interpretation: Positive Depression Screening Follow-up: Existing condition and In treatment Depression Screening Done: Yes 27395 - PHQ-9 Billing: Yes Source: Developed by Drs. Hector Stroud, Hreminia Bullard, Gigi Tsang and colleagues, with an educational april from [employer] (formerly [employer]). Thrive Questionnaire Date Thrive assessed: 06/24/24 I am a: Patient What is your living situation today?: I have a steady place to live Within the past 12 months, did the food you bought not last and you didn't have the money to get more?: Never true Within the past 12 months, did you worry whether your food would run out before you got money to buy more?: Never true Do you have trouble paying for medicines?: No Do you have trouble getting transportation to medical appointments?: No Do you have trouble paying your heating and electricity bill?: No Do you have trouble taking care of your child, family member or friend?: No Do you have trouble with day-to-day activities such as bathing, preparing meals, shopping, managing finances, etc.?: No Are you currently unemployed and looking for a job?: No Are you interested in more education?: No Please select the resources that you would like help with: None Currently or been in a relationship where the following occur: No concerns reported THRIVE Score: 0 AUDIT C Alcohol Use Questionnaire (AUDIT-C) 1. How often do you have a drink containing alcohol?: 2-3 times a week 2. How many drinks containing alcohol do you have on a typical day when you are drinking?: 1 or 2 3. How often do you have six or more drinks on one occasion?: Never Total Score: 3 JORDAN-7 AMB Questionnaire JORDAN-7 Date JORDAN - 7 assessed: 12/25/23 Feeling nervous, anxious, or on edge: 0 = Not at all Not being able to stop or control worryin = Not at all Worrying too much about different things: 0 = Not at all Trouble relaxin = Several days Being so restless that it is hard to sit still: 0 = Not at all Becoming easily annoyed or irritable: 0 = Not at all Feeling afraid as if something awful might happen: 0 = Not at all Total JORDAN-7 score (0-4 normal; 5-9 mild; 10-14 moderate; 15-21 severe): 1 Source: Developed by Drs. Hector Stroud, Herminia Bullard, Gigi Tsang and colleagues, with an educational april from [employer] (formerly [employer]). JORDAN-7 Assessment Billing JORDAN-7 Assessment Tool: JORDAN-7 Assessment 75943 Physical exam (Primary Care) Vital Signs: Last Vital Signs Pulse 68 07/01/24 08:51 Resp 14 07/01/24 08:51 BP 126/68 07/01/24 08:51 Pulse Ox 98 07/01/24 08:51 Oxygen Delivery Method Room Air 07/01/24 08:51 BMI result Body Mass Index 35.2 Tobacco/Smoking Status: Tobacco use Status Tobacco use date assessed 07/01/24 07/01/24 08:54 Patient Tobacco Use Status Former Tobacco user 07/01/24 08:59 e-Cigarette/Vaping Use Never Used 07/01/24 08:59 PHQ-9: PHQ-9 Score PHQ-9: Total score 2 07/01/24 08:54 Depression Screening Interpretation: Positive Depression Screening Follow-up: Existing condition and In treatment Thrive Assessment: Date of Thrive Assessment Date Thrive assessed 06/24/24 07/01/24 08:54 Currently or been in a relationship where the following occur: No concerns reported Const Orientation/consciousness: patient oriented x3 HENMT Other: TMs are noted to have air-fluid levels bilaterally. No erythema. Nasal mucosa pale and edematous. No sinus tenderness. Ears: hearing grossly normal bilaterally and external ears normal Neck Thyroid: Thyroid normal Lymphatic: no lymphadenopathy noted Resp Auscultation: clear to auscultation bilaterally Cardio Rate: regular rate Rhythm: regular rhythm Heart sounds: S1 normal heart sound present and S2 normal heart sound present GI Inspection: Yes normal to inspection Palpation (GI): Soft to palpation and Other GI palpation findings present (nontender, no cva tenderness) Auscultation: normoactive bowel sounds Rectal Exam - Female: deferred Skin General skin exam: no rashes or lesions noted Neuro General: patient oriented x3, gait normal and no focal motor deficits Coding Level of Care Code Est Pt Level 4 (50496) Complex EM visit Add On G2211 Diagnoses Major depressive disorder, recurrent, mild F33.0 Hypercholesteremia E78.00 Discomfort of both ears H92.03 Additional Codes PHQ-9 - 23555 - PHQ-9 Billing: Yes ([id number]) JORDAN-7 Assessment Billing - JORDAN-7 Assessment Tool: JORDAN-7 Assessment 14429 ([id number]) Assessment & Plan Assessment & Plan (1) Major depressive disorder, recurrent, mild: Code(s): F33.0 - Major depressive disorder, recurrent, mild Category: Medical Plan: Continue current regimen. Currently well-controlled. (2) Hypercholesteremia: Code(s): E78.00 - Pure hypercholesterolemia, unspecified Category: Medical Plan: Continue atorvastatin. (3) Discomfort of both ears: Code(s): H92.03 - Otalgia, bilateral Category: Medical Plan: We will try Xyzal and Flonase. Follow up in 1 month. Sooner if needed. Patient understands and agrees with this plan. Medications: New methylprednisolone (Medrol (Geoffrey)) PO PER PKG DIR for 6 days 21 ea 0RF fluticasone propionate 50 mcg/actuation (Flonase Allergy Relief) administer into each nostril 1 spray intranasal BID 16 grams 0RF levocetirizine (Xyzal) 5 mg PO DAILY 30 tabs 1RF
[2024-07-01 08:51] VITALS: BP 126/68; PULSE 68; RESP 14; O2SAT 98; BMI 35.2
--- OUTSIDE RECORDS SUMMARY | 2024-07-01 09:14 | XMS_ITS | Patient Health Record ---
Author Organization [facility] Address [address] [place] [address] Care Team Providers Care Placement Manager Name Role Phone Christal Loo NP Primary Care Provider Nesha Jarquin Unavailable [phone] Allergies No Known Allergies Reason For Referral [...] Problem Status W/U Status Risk Notes Problem [id number] Osteoarthritis o f right ankle and foot (M19.071) Active confirmed Problem [id number] Osteoarthritis o f left ankle and foot (M19.072) Active confirmed Plan Of Treatment Pending Test Test Name Order Date X ray : Foot, left 3V 08/16/2020 X ray : Foot, right 3V 08/16/2020 31984,[id number] TENDON SHEATH/LIGAMENT 0 10/12/2020 Insurance Providers Payer Name Payer Address Payer Phone Subscriber Number Group Number Insured Name Patient Relationship to Insured Coverage Start Date Coverage End Date Blue Benefits [address] [address] [place] [address] [id number] Marina Gonzalez Self - patient is the insured Medical (General) History Medical History History ICD Code Depression Chicken pox Surgical History Surgery Date(Month/Year)
== END 2024-07-01 09:15 | disposition home or self-care (01) ==
LOC: HO.HMCFM 08:40
PROVIDERS: PCP Physician Assistant; Visit Provider Physician Assistant
DX: F33.0 Major depressive disorder, recurrent, mild (principal); E78.00 Pure hypercholesterolemia, unspecified; H92.03 Otalgia, bilateral

== ENCOUNTER → 2024-07-01 08:39 | Outpatient (BNVA) | payer OTHER, SELFPAY | PROVIDERS: PCP Physician Assistant; Visit Provider Physician Assistant | DX: F33.0 Major depressive disorder, recurrent, mild (principal); E78.00 Pure hypercholesterolemia, unspecified; H92.03 Otalgia, bilateral; Z79.899 Other long term (current) drug therapy | CPT/HCPCS: 96127 ==

== ENCOUNTER 2024-12-03 15:20 | Outpatient (AMB) | payer OTHER, SELFPAY ==
--- NOTE | 2024-12-03 15:33 | MHC.PC.OV ---
Vital Signs 12/03/24 15:39 Height 5 ft 0.63 in Weight 183 lb 6 oz BMI 35.1 BP 122/61 Blood Pressure Location Rt brachial Position Sitting Respiration 16 Pulse 68 Pulse Source Pulse Oximeter Temp 98.7 F Temp Source Oral Pulse Oximetry (%) 98 Oxygen Delivery Method Room Air Intake Visit Reasons: PE Intake Note: patient here for CPE Green Prom[employer] Specialist Required: No Is last menstrual period known: No Post menopausal: No Patient : No Allergies No Known Allergies Allergy (Verified 12/03/24 15:36) Medication List - Last Reconciled 12/03/24 by Leann Ortega PA-C atorvastatin 10 mg PO DAILY fluticasone propionate 50 mcg/actuation 1 spray intranasal BID levocetirizine 5 mg PO DAILY sodium,potassium,mag sulfates 17.5-3.13-1.6 gram (Suprep Bowel Prep Kit) DILUTE each bottle with 16oz of water; drink first bottle 4pm evening before procedure AND second bottle at 10pm; follow each bottle with at least 32 oz.of water within 1 hour after each bottle venlafaxine ER (Effexor XR) 150 mg PO BEDTIME Tobacco use date assessed: 12/03/24 Dental Screening Dental Screen Date: 12/03/24 Did you have a dental visit in the last 12 months?: Yes Did you have a dental problem in the last 6 months where you did not have access to dental care?: No Was dental information given to patient?: Patient has dentist HPI PE HPI Details Pt is a 59 y/o female who presents today for a cpe CV: bp today is 122/61. Cholesterol is managed with atorvastatin. Last LDL 100. Psych: Recently started on venlafaxine and doing really well with this. She says it does help with some of the anxiety but not fully. She says that she gets overwhelmed easily and has a previous history also of ADHD and has tried a stimulant in the past but can not recall how she reacted to it. She states her inability to focus sometimes this causing her a lot of stress. Denies any SI/HI. She tolerates it well. No SI/HI. Tried Lexapro, fluoxetine, sertraline and these were ineffective. She feels like lexapro takes the edge off but it was not perfect . Colonoscopy: Dr. Childs, 02/2016 had a polyp- recommended for q 5 years.- finally booked for 12/2024 Mammo: 04/14, UTD Pap: 1 year ago Bone density:osteopenia- 2024 [facility] Medical History Depression GERD (gastroesophageal reflux disease) Heart palpitations Anxiety High cholesterol Surgical History No pertinent past surgical history Family History Father High cholesterol Mother Cardiovascular disease Other Bladder cancer Diabetes Lung cancer Prostate cancer Social History Housing: House Alcohol intake: current Patient Tobacco Use Status: Former Tobacco user Cigarettes Per Day: 5 Years Smoked: 8 e-Cigarette/Vaping Use: Never Used service: No Current occupational status: employed Current occupation: [employer]/ [employer] Current occupational exposures/hazards: No Cognitive needs: No Hearing needs: No Vision needs: Yes (reading glasses) Questionnaire PHQ-9 Over the last 2 weeks, how often have you been bothered by any of the following problems? 1. Little interest or pleasure in doing things: not at all 2. Feeling down, depressed, or hopeless: not at all 3. Trouble falling or staying asleep, or sleeping too much: several days 4. Feeling tired or having little energy: more than half the days 5. Poor appetite or overeating: several days 6. Feeling bad about yourself - or that you are a failure or have let yourself or your family down: not at all 7. Trouble concentrating on things, such as reading the newspaper or watching television: more than half the days 8. Moving or speaking so slowly that other people could have noticed. Or the opposite - being so fidgety or restless that you have been moving around a lot more than usual: not at all 9. Thoughts that you would be better off or of hurting yourself in some way: not at all Total score: 6 Depression Screening Interpretation: Positive Depression Screening Done: Yes 54201 - PHQ-9 Billing: Yes Source: Developed by Drs. Hector Stroud, Herminia Bullard, Gigi Tsang and colleagues, with an educational april from [employer]. Thrive Questionnaire Date Thrive assessed: 12/03/24 I am a: Patient What is your living situation today?: I have a steady place to live Within the past 12 months, did the food you bought not last and you didn't have the money to get more?: Never true Within the past 12 months, did you worry whether your food would run out before you got money to buy more?: Never true Do you have trouble paying for medicines?: No Do you have trouble getting transportation to medical appointments?: No Do you have trouble paying your heating and electricity bill?: No Do you have trouble taking care of your child, family member or friend?: No Do you have trouble with day-to-day activities such as bathing, preparing meals, shopping, managing finances, etc.?: No Are you currently unemployed and looking for a job?: No Are you interested in more education?: No Please select the resources that you would like help with: None Currently or been in a relationship where the following occur: No concerns reported THRIVE Score: 0 AUDIT C Alcohol Use Questionnaire (AUDIT-C) 1. How often do you have a drink containing alcohol?: 2-3 times a week 2. How many drinks containing alcohol do you have on a typical day when you are drinking?: 1 or 2 3. How often do you have six or more drinks on one occasion?: Never Total Score: 3 Score Reviewed/Action Taken: Yes JORDAN-7 AMB Questionnaire JORDAN-7 Date JORDAN - 7 assessed: 12/03/24 Feeling nervous, anxious, or on edge: 2 = More than half the days Not being able to stop or control worryin = Several days Worrying too much about different things: 1 = Several days Trouble relaxin = Several days Being so restless that it is hard to sit still: 0 = Not at all Becoming easily annoyed or irritable: 0 = Not at all Feeling afraid as if something awful might happen: 0 = Not at all Total JORDAN-7 score (0-4 normal; 5-9 mild; 10-14 moderate; 15-21 severe): 5 Source: Developed by Drs. Hector Stroud, Herminia Bullard, Gigi Tsang and colleagues, with an educational april from [employer]. JORDAN-7 Assessment Billing JORDAN-7 Assessment Tool: JORDAN-7 Assessment 04768 Physical exam (Primary Care) Vital Signs: Last Vital Signs Temp 98.7 F 12/03/24 15:39 Pulse 68 12/03/24 15:39 Resp 16 12/03/24 15:39 BP 122/61 12/03/24 15:39 Pulse Ox 98 12/03/24 15:39 Oxygen Delivery Method Room Air 12/03/24 15:39 BMI result Body Mass Index 35.1 Tobacco/Smoking Status: Tobacco use Status Tobacco use date assessed 12/03/24 12/03/24 15:38 Patient Tobacco Use Status Former Tobacco user 12/03/24 15:38 e-Cigarette/Vaping Use Never Used 12/03/24 15:38 PHQ-9: PHQ-9 Score PHQ-9: Total score 6 12/03/24 15:47 Depression Screening Interpretation: Positive Thrive Assessment: Date of Thrive Assessment Date Thrive assessed 12/03/24 12/03/24 15:47 Currently or been in a relationship where the following occur: No concerns reported Const Orientation/consciousness: patient oriented x3 HENMT Ears: hearing grossly normal bilaterally and TM's normal bilaterally General nose exam: No nasal polyps present Face and sinus: Yes sinuses nontender Mouth: Normal oral and palatal mucosa present Eyes Pupils: Equal, round and reactive pupils present EOM: EOMs intact bilaterally Neck Neck: Yes full ROM and Yes no lymphadenopathy Thyroid: Thyroid normal Chest Chest palpation & inspection: normal inspection of the chest Breast/axilla inspection: normal inspection of the breasts and normal inspection of the axillae Breast/axilla palpation: normal palpation of the breasts and normal palpation of the axillae Resp Auscultation: clear to auscultation bilaterally Cardio Rate: regular rate Rhythm: regular rhythm Heart sounds: S1 normal heart sound present and S2 normal heart sound present Peripheral pulses: Peripheral pulses 2+ throughout GI Other: Soft, nontender Auscultation: normal bowel sounds Rectal Exam - Female: deferred General: Yes no CVA tenderness Back/Spine/Pelvis Other: Nontender Back: no CVA tenderness Skin General skin exam: no rashes or lesions noted Neuro General: patient oriented x3, gait normal, CN's II-XI intact bilaterally and deep tendon reflexes 2+ bilaterally Cranial nerves: Yes Equal, round and reactive pupils present Motor exam (neuro): 5/5 motor strength present throughout Sensory Exam: double simultaneous stimulation for sensation normal Coordination: nuishj-sw-uegn test normal and Romberg test negative Extrem General: Yes normal to inspection and Yes full ROM Psych Affect: normal affect Attitude: cooperative Thought process: Normal thought process present Thought content: Normal thought content present Insight: Good insight present (Psych) Judgement: Good judgement present (Psych) Coding Level of Care Code Est Pt Prev Care 40-64y(54011) Diagnoses Routine general medical examination at a health care facility Z00.00 Generalized anxiety disorder F41.1 Hypercholesteremia E78.00 Major depressive disorder, recurrent, mild F33.0 Difficulty concentrating R41.840 Additional Codes JORDAN-7 Assessment Billing - JORDAN-7 Assessment Tool: JORDAN-7 Assessment 16347 ([id number]) PHQ-9 - 01628 - PHQ-9 Billing: Yes ([id number]) Assessment & Plan Assessment & Plan (1) Routine general medical examination at a [facility] care [facility]: Code(s): Z00.00 - Encounter for general adult medical examination without abnormal findings Plan: Health maintenance reviewed. Labs ordered. Referral to Dermatology for a skin check (2) Generalized anxiety disorder: Code(s): F41.1 - Generalized anxiety disorder Category: Medical Plan: We will add Wellbutrin. Discussed risks and benefits and adverse effects of the medication (3) Hypercholesteremia: Code(s): E78.00 - Pure hypercholesterolemia, unspecified Category: Medical Plan: Continue atorvastatin (4) Major depressive disorder, recurrent, mild: Code(s): F33.0 - Major depressive disorder, recurrent, mild Category: Medical Plan: As above. Continue venlafaxine (5) Difficulty concentrating: Code(s): R41.840 - Attention and concentration deficit Category: Medical Plan: As above Orders: Orders Comprehensive [place]. Panel Fast 12/03/24 E78.00 - Pure hypercholesterolemia, unspecified, F33.0 - Major depressive disorder, recurrent, mild, F41.1 - Generalized anxiety disorder, R41.840 - Attention and concentration deficit, Z00.00 - Encounter for general adult medical examination without abnormal findings Hemoglobin A1c 12/03/24 E78.00 - Pure hypercholesterolemia, unspecified, F33.0 - Major depressive disorder, recurrent, mild, F41.1 - Generalized anxiety disorder, R41.840 - Attention and concentration deficit, R73.01 - Impaired fasting glucose, Z00.00 - Encounter for general adult medical examination without abnormal findings Microalbumin, Random (w Creat) 12/03/24 E78.00 - Pure hypercholesterolemia, unspecified, F33.0 - Major depressive disorder, recurrent, mild, F41.1 - Generalized anxiety disorder, R41.840 - Attention and concentration deficit, Z00.00 - Encounter for general adult medical examination without abnormal findings Complete Blood Count Auto Diff 12/03/24 E78.00 - Pure hypercholesterolemia, unspecified, F33.0 - Major depressive disorder, recurrent, mild, F41.1 - Generalized anxiety disorder, R41.840 - Attention and concentration deficit, Z00.00 - Encounter for general adult medical examination without abnormal findings Lipid Panel 12/03/24 E78.00 - Pure hypercholesterolemia, unspecified, F33.0 - Major depressive disorder, recurrent, mild, F41.1 - Generalized anxiety disorder, R41.840 - Attention and concentration deficit, Z00.00 - Encounter for general adult medical examination without abnormal findings TSH reflex Free T4 12/03/24 E78.00 - Pure hypercholesterolemia, unspecified, F33.0 - Major depressive disorder, recurrent, mild, F41.1 - Generalized anxiety disorder, R41.840 - Attention and concentration deficit, Z00.00 - Encounter for general adult medical examination without abnormal findings UA CC w/rflx Micro + Cult 12/03/24 E78.00 - Pure hypercholesterolemia, unspecified, F33.0 - Major depressive disorder, recurrent, mild, F41.1 - Generalized anxiety disorder, R41.840 - Attention and concentration deficit, Z00.00 - Encounter for general adult medical examination without abnormal findings, Z13.220 - Encounter for screening for lipoid disorders Referrals Dermatology Referral D22.9 - Melanocytic nevi, unspecified Medications: New venlafaxine ER (Effexor XR) 75 mg PO DAILY 90 caps 3RF bupropion HCl XL (Wellbutrin XL) 150 mg PO QAM 90 tabs 1RF Discontinued venlafaxine ER Discontinued Reason: Doctor's Order 75 mg PO DAILY 90 caps 1RF
[2024-12-03 15:39] VITALS: BP 122/61; PULSE 68; RESP 16; TEMP 37.1; O2SAT 98; BMI 35.1
== END 2024-12-03 16:15 | disposition home or self-care (01) ==
LOC: HO.HMCFM 15:21
PROVIDERS: PCP Physician Assistant; Visit Provider Physician Assistant
DX: Z00.00 Encounter for general adult medical examination without abnormal findings (principal); F41.1 Generalized anxiety disorder; E78.00 Pure hypercholesterolemia, unspecified; F33.0 Major depressive disorder, recurrent, mild; R41.840 Attention and concentration deficit

== ENCOUNTER → 2024-12-03 15:20 | Outpatient (BNVA) | payer OTHER, SELFPAY | PROVIDERS: PCP Physician Assistant; Visit Provider Physician Assistant | DX: Z00.00 Encounter for general adult medical examination without abnormal findings (principal); F41.1 Generalized anxiety disorder; E78.00 Pure hypercholesterolemia, unspecified; F33.0 Major depressive disorder, recurrent, mild; R41.840 Attention and concentration deficit; D22.9 Melanocytic nevi, unspecified | CPT/HCPCS: 96127 ==

== ENCOUNTER 2025-01-18 07:04 | Outpatient (REF) | payer OTHER, SELFPAY ==
--- OUTSIDE RECORDS SUMMARY | 2025-01-18 07:06 | XMS_ITS | Patient Health Record ---
Author Organization [facility] Address [address] [place] [address] Care Team Providers Care Acid Concentrator Name Role Phone Cinda PERRY, Christal Primary Care Provider Nesha Jarquin Unavailable [phone] Allergies No Known Allergies Reason For Referral No Information Medications Medication SIG (Take, Route, Frequency, Duration) Notes Start Date End Date Status FLUoxetine HCl 20 MG 1 capsule Orally On ce a day; Duration: 30 day(s) Active buPROPion HCl 100 MG 3 tablet Orally Active Nightsplint . . . AFO - L1930; Duration: . Active Atorvastatin Calcium 10 MG 1 tablet Oral ly Once a day; Duration: 30 day(s) Active Vitamin D 50 MCG (1999 UT) 1 tablet Oral ly Once a day; Duration: 30 day(s) Active Calcium 500 MG 1 tablet with meals Orally Twice a day; Duration: 30 day(s) Active Immunizations Vaccine Route Administration [...] Problem Status W/U Status Risk Notes Problem Localized, primary osteoarthritis of the ankle and/or foot (430093972) Osteoarthritis of right ankle and foot (M19.071) Active confirmed Problem Localized, primary osteoarthritis of the ankle and/or foot (961755072) Osteoarthritis of left ankle and foot (M19.072) Active confirmed Plan Of Treatment Pending Test Test Name Order Date X ray : Foot, left 3V 08/16/2020 X ray : Foot, right 3V 08/16/2020 [id number] TENDON SHEATH/LIGAMENT 0 10/12/2020 Insurance Providers Payer Name Payer Address Payer Phone Subscriber Number Group Number Insured Name Patient Relationship to Insured Coverage Start Date Coverage End Date [employer] Benefits [address] [address] [place] [address] [id number] Marina Gonzalez Self - patient is the insured Medical (General) History Medical History History ICD Code Depression Chicken pox Surgical History Surgery Date(Month/Year)
--- OUTSIDE RECORDS SUMMARY | 2025-01-18 07:06 | XMS_ITS | Patient Health Record ---
Author Organization [facility] Address [address] [place] [address] Care Team Providers Care Surgery Tech Name Role Phone Cinda PERRY, Christal Primary Care Provider Hector Tate [phone] Reason For Referral No Information Medications Medication SIG (Take, Route, Fr equency, Duration) Notes Start Date End Date Status Vitamin D 1000 UNIT 1 tablet Orally Once a day Active Calcium Active Problems Problem Type SNOMED Code ICD Code Onset Dates Problem Status W/U Status Risk Notes Problem 410177611 Colon cancer screening (Z12.11) Active confirmed Problem 13993968 Encounter for other preprocedural examination (Z01.818) Active confirmed Plan Of Treatment Future Test Test Name Order Date COLONOSCOPY 01/12/2016 Insurance Providers Payer Name Payer Address Payer Phone Subscriber Number Group Number Insured Name Patient Relationship to Insured Coverage Start Date Coverage End Date [facility] [address] [place] [phone] [id number] PHAMDINO WESLEY Self - patient is the insured Medical (General) History Medical History History ICD Code Denies DE,DM,CVA,Lung disease,renal dise ase Surgical History Surgery Date(Month/Year) mole removed on right hand
--- OUTSIDE RECORDS SUMMARY | 2025-01-18 07:07 | XMS_ITS | Clinical Summary ---
Author Organization [facility] Address [address] [address] Phone Care Team Providers Care Air Quality Specialist Name Role Phone Unknown, Unknown MD Primary [...] 21 Adult Td,Tdap Booster 10/13/2023 10/12/2013, 011 FOLLOW UP BONE DENSITY TESTING 05/25/2024 05/25/2022, 02/08/2022, 03/14/2020 INFLUENZA VACCINE (#1) 2024 , 02/01/2022, 01/31/2021, Additional history exists COVID-19 VACCINE ( season) 2024 03/29/2023, 01/18/2021, 05/01/2020, Additional history exists MAMMOGRAM 03/28/2025 03/28/2023, 04/2021, 03/20/2021, Additional history [...] Procedure Name Priority Date/Time Associated Diagnosis Comments HM MAMMOGRAPHY Routine 03/28/2023 11:42 AM EST OUTSIDE [...] (03/28/2023 11:42 AM EST) Christal Loo NP [facility] MAINTENANCE Final Result * (ABNORMAL) Outside Glucose,Fasting (06/08/2022) Glucose, fasting - External 103(A) 65 - 99 mg/dL Result [facility] Provider LAB BLOOD ORDERABLES Hallie l Result * Outside HDL (06/08/2022) HDL - External 64 40 - 80 mg/dL Result [facility] Provider LAB BLOOD ORDERABLES Hallie l Result * HM DEXA SCAN (05/25/2022) Christal Loo NP [facility] [place] Edited Resul t - Final * Pap Smear (02/07/2021 12:00 AM EDT) 02/07/2021 02/08/2021 8:2 9 AM EDT Narrative SEE NARRATIVE - 02/16/2021 4:14 PM EDT [address] [address] Paleology Teacher: Alma Red MD REHABILITATION PHYSICIAN Cytology Report FINAL DIAGNOSIS A. PAP SMEAR (SUREPATH) CE: SPECIMEN ADEQUACY: Satisfactory for evaluation; transformation zone present. INTERPRETATION: NEGATIVE FOR INTRAEPITHELIAL LESION OR MALIGNANCY. Electronically Signed Out By: CHIQUIS Barber(ASCP) The Pap test is a screening test [...] 52, 56, 58, 59, 66, 68) by [employer] HR-HPV analysis. Clinical correlation is advised. This HPV test was performed at [facility], [address] [place] [address]. This test has been FDA approved for SurePath cervical cytology specimens. The accuracy and precision of this test for all other specimen sources has been verified in the Cytopathology Laboratory of the [facility] and has not been cleared or approved by the U.S. Food and Drug Administration. Clinical correlation is advised. CLINICAL HISTORY Date of Last Menstrual Period: Not Provided Menstrual History: Post Menopausal Other Clinical Conditions: Screening Pap SPECIMEN SOURCE A: PAP SMEAR (SUREPATH) CE Patient Name: DINO GONZALEZ : 1965 (Age: 55) Sex: F Institution: [facility] Location: [facility] Date of Collection: 02/07/2021 Date of Reported: 02/16/2021 16:14 Results to: Christal Loo MSN, BSN us Christal Loo NP CYTOLOGY ORDERABLES Final Resul t SEE NARRATIVE * Outside Hepatitis C Virus Screening (01/28/2020) Hepatitis C Screening - External Neg Historical Provider LAB BLOOD ORDERABLES Hallie christian Result * OUTSIDE HIV TEST (01/28/2020) HIV - External Neg us Historical Provider LAB BLOOD ORDERABLES Hallie l Result * COLONOSCOPY FOR RESULT ENTRY ONLY (02/24/2016) HM Colonoscopy hyperplastic us Historical Provider HEALTH MAINTENANCE Edited Result - Final from Last 3 Months or Most Recently Relevant to Health Maintenance Insurance [employer] Member Subscriber Plan / Payer (Ef fective 2019-Present) Name:Dino Gonzalez Relation to Subscriber:Self Name:Dino Gonzalez Payer ID:[id number] (NAIC) Type:PPO Address: [place] [id number] [employer] ADMINISTRATORS Member Subscriber Plan / Payer (Ef fective 2019-Present) Name:Dino Gonzalez Relation to Subscriber:Self Name:Dino Gonzalez Payer ID:[id number] (NAIC) Type:PPO Address: [place] [phone] [employer] Member Subscriber Plan / Payer (Ef fective 2019-Present) Name:Dino Gonzalez Relation to Subscriber:Self Name:Dino Gonzalez Payer ID:[id number] (NAIC) Type:PPO Address: [address] [employer] ADMINISTRATORS [employer] ADMINIST[employer]ATORS [employer] ADMINISTRATORS [employer] Member Subscriber Plan / Payer (Ef fective 2019-Present) Name:Dino Gonzalez Relation to Subscriber:Self Name:Dino Gonzalez Payer ID:[id number] (NAIC) Type:PPO Address: [place] [phone] [employer] ADMINIST[employer]ATORS [employer] Care Teams Air Quality Specialist Relationship Specialty Start Date End Date Unknown, Unknown, PCP - General 07/08/23 Additional Source Comments The information contained in this document represents components of the legal health record. It is not the complete legal health record.Loc[facility]
[2025-01-18 09:57] LABS: MANUAL DIFF FLAG NO
[2025-01-18 10:06] LABS: Hematocrit 42.2 % (37.0-47.0); Hemoglobin 14.3 g/dl (12.0-16.0); Imm Gran Abs Auto 0.02 X10*3/uL (0.00-0.03); Imm Gran Pct Auto 0.3 % (0.0-0.4); Lymphocytes Absolute Auto 1.4 X10*3/uL (1.2-4.9); Mean Corpuscular HGB Conc 33.9 g/dl (31.0-35.0); Mean Corpuscular Hemoglobin 29.1 pg (27.0-33.0); Mean Corpuscular Volume 85.9 fL (80.0-98.0); NRBC Abs Auto 0.000 X10*3/uL (0.0-0.012); NRBC Pct Auto 0.0 /100WBC (0.0-0.2); Platelet Count 298 X10*3/uL (160-400); Red Blood Count 4.91 X10*6/uL (4.20-5.50); White Blood Count 6.6 X10*3/uL (4.8-10.8)
[2025-01-18 10:08] LABS: Appearance Urine Clear; Glucose Urine UA Negative (Negative); PH 7.5 (5.0-9.0); Specific Gravity - Urine 1.015 (1.005-1.025); UMIC TRIGGER UACC YES
[2025-01-18 10:25] LABS: Total Hemoglobin (HGBA1C) 3650.5896 umol/L
[2025-01-18 10:31] LABS: UACC Culture Trigger YES
[2025-01-18 10:47] LABS: Alanine Aminotransferase 17 U/L (0-31); Albumin Level 4.2 g/dL (3.5-5.0); Alkaline Phosphatase 66 U/L (39-117); Anion Gap 11 (12-20); Aspartate Amino Transferase 20 U/L (5-31); Blood Urea Nitrogen 11 mg/dL (9-16); Calcium 9.2 mg/dL (8.4-10.2); Carbon Dioxide 28 mmol/L (22-29); Chloride 105 mmol/L (96-108); Cholesterol 176 mg/dL (<200); Estimated Glomerular Filt Rate > 60; HDL Cholesterol 54 mg/dL (>40); Potassium 4.1 mmol/L (3.3-5.1); Sodium 140 mmol/L (135-145); Total Protein 7.0 g/dL (6.5-8.0); Triglycerides 69 mg/dL (<150)
== END 2025-01-18 07:05 | disposition home or self-care (01) ==
LOC: HO.HMGCLDS 07:04
PROVIDERS: PCP Physician Assistant; Visit Provider Physician Assistant
DX: Z00.00 Encounter for general adult medical examination without abnormal findings (principal); Z13.220 Encounter for screening for lipoid disorders; E78.00 Pure hypercholesterolemia, unspecified; F33.0 Major depressive disorder, recurrent, mild; F41.1 Generalized anxiety disorder; R73.01 Impaired fasting glucose; R41.840 Attention and concentration deficit
CPT/HCPCS: 36415; 80053; 80061; 81001; 82043; 82570; 83036; 84443; 85025; 87086

== ENCOUNTER 2025-01-19 06:34 | Day surgery (SDC) | payer OTHER, SELFPAY ==
--- OUTSIDE RECORDS SUMMARY | 2024-12-03 14:42 | XMS_ITS | Clinical Summary ---
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 Active cholecalciferol (VITAMIN D3) 25 MCG (1,000 unit) tablet Take 1,000 Units by mouth daily. Active alendronate (FOSAMAX) 70 MG tablet Take 1 tablet (70 mg total) by mouth every 7 days. Take in the morning with a full glass of water, on an empty stomach, and do not take anything else by mouth or lie down for the next 30 min. 12 tablet 2 02/09/20 22 Active Additional Information Patient not taking.Reported on 08/16/2022 escitalopram oxalate (LEXAPRO) 20 MG tabletIndications: Recurrent major depression in partial remission,Anxiety TAKE 1 TABLET BY MOUTH EVERY DAY 90 tablet 3 07/17/19 23 Active methylphenidate HCl 18 MG ER tablet Take 1 tablet (18 mg total) by mouth every morning. 28 tablet 01/18/20 23 Active atorvastatin (LIPITOR) 10 MG tabletIndications: Mixed hyperlipidemia take 1 tablet by mouth every day 90 tablet 3 04/30/19 24 Active Active Problems Problem Noted Date Diagnosed Date Osteopenia 08/16/2022 ADHD (attention deficit hype ractivity disorder), combined type 02/07/2021 Vitamin D deficiency 04/20/2020 Tinnitus, bilateral 01/30/2019 Anxiety 10/16/2017 Mixed hyperlipidemia 10/16/2017 Seasonal allergies 10/16/2017 Psychophysiological insomnia 10/16/2017 Recurrent major depression in full remission Immunizations Immunization Administration Dates Next Due COVID-19 (Pre-02/11) Pfizer Vaccine, mRNA, PF 05/01/2020,04/08/2020 INFLUENZA, SPLIT VIRUS, TRIV ALENT W/ PRESERVATIVE IM 03/05/2016 Influenza Quadrivalent Prese rvative Free IM 01/24/2023,02/01/2022,01/24/2021,2018,01/31/2018 Influenza Quadrivalent w/ Preservative IM 02/15/2017 Influenza, Unspecified Formulation 01/31/2021,,02/15/2009 Td (adult) 5 Lf Tetanus Toxo id, PF, Adsorbed 10/12/2013 Tdap 12/21/2010 Family History Medical History Relation Comments Bladder Cancer Brother 1 Carotid stenosis Brother 1 Hyperlipidemia Brother 1 hepatitis c Brother 1 Lung cancer Brother 3 Stroke Brother 3 No Known Problems Daughter CV disease Father Carotid stenosis Father Pulmonary fibrosis Father Stroke Father CV disease Mother Heart disease Mother Scarlet fever Mother Diabetes Sister 1 Hypertension Sister 1 Overweight Sister 1 No Known Problems Sister 2 Relation Status Comments Brother 1 Alive Brother 2 Alive Brother 3 Daughter Alive Father Mother Sister 1 Alive Sister 2 Alive Social History Tobacco Use Types Packs/Day Years Used Date Smoking Tobacco: Former Cigarettes 0.5 10 0 09/20/1985 - 09/21/1995 Smokeless Tobacco: Never Tobacco Cessation:Counseling Given: Not Answered Alcohol Use Standard Drinks/Week Comments Yes 7 (1 standard drink = 0.6 oz pur e alcohol) Child or Family Care Answer Date Record ed Do you have problems with on e of the following making it difficult for you to work, study, or receive health care? No 02/06/2022 Education Answer Date Recorded Are you interested in more education? Not on lidia e 02/18/2024 Are you concerned about learning? Not on file 02/18/2024 No 02/18/2024 No 02/18/2024 Food Answer Date Recorded Within the past 6 months we worried whether our food would run out before we got money to buy more. Never True 02/06/2022 Within the past 6 months the food we bought just didn't last and we didn't have enough money to get more. Never True Residential Stability Answer Date Recor ded What is your housing situation today? I have jose c sing 02/06/2022 How many times have you move d in the past 12 months? Zero (I did not move) 02/06/2022 Paying for Meds Answer Date Recorded Do you have trouble paying for medicines? No 02/06/2022 Paying Utility Bills Answer Date Record ed Do you have trouble paying your heating or elect ricity bill? No 02/06/2022 Transportation Answer Date Recorded Has the lack of transportati on kept you from medical appointments or from getting medications? No 02/06/2022 Unemployment Answer Date Recorded Are you currently unemployed or working on a part-time or temporary basis, and looking for work? No 02/06/2022 Digital Access Answer Date Recorded No 09/17/2022 No 09/17/2022 Reliable internet access at home? Not on file 09/17/2022 Device with a working camera? Not on file Comments No Sex and Gender Information Value Date Recorded Sex Assigned at Female 02/14/2021 8:43 AM EDT Legal Sex Female 9:43 PM EDT Gender Identity Not on file Sexual Orientation Not on file Last Filed Vital Signs Vital Sign Reading Time Taken Comments Blood Pressure 126/70 02/08/2022 9:03 AM EDT Pulse 64 02/08/2022 9:03 AM EDT Temperature 36.3 C (97.3 F) 02/08/2022 9:03 AM EDT Respiratory Rate 16 07/19/2021 10:21 AM EDT Oxygen Saturation 97% 02/08/2022 9:03 AM EDT Inhaled Oxygen Concentration - - Weight 79.5 kg (175 lb 3.2 oz) 02/08/2022 9:03 A M EDT Height 155.9 cm (5' 1.38 ) 02/08/2022 9:03 AM ED T Body Mass Index 32.7 02/08/2022 9:03 AM EDT Plan of Treatment Health Maintenance Due Date Last Done Comments SMOKING Hx and SMOKELESS TOBACCO SCREENING 09/27/1976 COLOGUARD 09/27/2008 FIT TEST 09/27/2008 FOBT 09/27/2008 SIGMOIDOSCOPY 09/27/2008 VIRTUAL COLONOSCOPY 09/27/2008 PNEUMOCOCCAL VACCINES (50+ years) (1 of 1 - PCV) 09/27/2013 ZOSTER VACCINES (1 of 2) 09/27/2013 DEPRESSION SCREENING 02/06/2023 02/06/2022, 03/03/20 21 Adult Td,Tdap Booster 10/13/2023 10/12/2013, 011 COVID-19 VACCINE ( season) 2023 03/29/2023, 01/18/2021, 05/01/2020, Additional history exists FOLLOW UP BONE DENSITY TESTING 05/25/2024 05/25/2022, 02/08/2022, 03/14/2020 MAMMOGRAM 03/28/2025 03/28/2023, 04/2021, 03/20/2021, Additional history exists SCREENING FOR DIABETES 06/08/2025 , 05/18/2021, 01/13/2018 PAP SMEAR 02/07/2026 02/07/2021, 02/07/2016 COLONOSCOPY 02/23/2026 02/24/2016 COLORECTAL CANCER SCREENING 02/23/2026 LIPID PANEL 06/08/2027 06/08/2022, 05/23, 06/08/2022, Additional history exists RSV VACCINE (1 - 1-dose 75+ series) 09/27/2038 HEPATITIS C SCREENING Completed 01/28/2020 HIV ONE-TIME SCREENING (18-65 YEARS) Completed 01/28/2020 HEPATITIS A VACCINES Aged Out No long er eligible based on patient's age to complete this topic HIB VACCINES Aged Out No longer eligi ble based on patient's age to complete this topic MENINGOCOCCAL VACCINES (ACWY) Aged Out No longer eligible based on patient's age to complete this topic MENINGOCOCCAL VACCINES (B) Aged Out N o longer eligible based on patient's age to complete this topic Medical Devices Not on file Procedures Procedure Name Priority Date/Time Associated Diagnosis Comments MAMMOGRAPHY Routine 03/28/2023 11:42 AM EST OUTSIDE HDL Routine 06/08/2022 OUTSIDE GLUCOSE FASTING Routine 06/08/2022 HM DEXA SCAN Routine 05/25/2022 PAP TEST Routine 02/07/2021 12:00 AM EDT OUTSIDE HIV Routine 01/28/2020 OUTSIDE HEPATITIS C VIRUS SCREENING Routine 01/28/2020 COLONOSCOPY FOR RESULT ENTRY ONLY Routine 02/24/2016 from Last 3 Months or Most Recently Relevant to Health Maintenance Results * MAMMOGRAPHY FOR RESULT ENTRY ONLY (03/28/2023 11:42 AM EST) Christal Loo NP HEALTH MAINTENANCE Final Result * (ABNORMAL) Outside Glucose,Fasting (06/08/2022) Glucose, fasting - External 103(A) 65 - 99 mg/dL Result [facility] Provider MD LAB BLOOD ORDERABLES Hallie l Result * Outside HDL (06/08/2022) HDL - External 64 40 - 80 mg/dL [facility] Provider LAB BLOOD ORDERABLES Hallie l Result * DEXA SCAN (05/25/2022) Christal Loo NP [facility] Edited Resul t - Final * Pap Smear (02/07/2021 12:00 AM EDT) 02/07/2021 02/08/2021 8:2 9 AM EDT Narrative SEE NARRATIVE - 02/16/2021 4:14 PM EDT [address] [address] International Marketing Manager: Alma Red MD METALLURGIST PROCESS Cytology Report FINAL DIAGNOSIS A. PAP SMEAR (SUREPATH) CE: SPECIMEN ADEQUACY: Satisfactory for evaluation; transformation zone present. INTERPRETATION: NEGATIVE FOR INTRAEPITHELIAL LESION OR MALIGNANCY. Electronically Signed Out By: Ehsan Anne CT(ASCP) The Pap test is a screening test primarily for squamous cancers and precursors and has associated false-negative and false-positive results. New technologies such as liquid-based preparations may decrease but will not eliminate all false-negative results. Regular sampling and follow-up of unexplained clinical signs and symptoms are recommended to minimize false negative results. PROCEDURES/ADDENDA HPV Testing (Requested) Ordered Date: 02/08/2021 A. PAP SMEAR (SUREPATH) CE: Human Papilloma Virus Test Negative for high-risk human papillomavirus types 16, 18, 45 and the Other high risk probe set (Includes 31, 33, 35, 39, 51, 52, 56, 58, 59, 66, 68) by [employer] Onclarity HR-HPV analysis. Clinical correlation is advised. This HPV test was performed at [facility], [address] [place] [address]. This test has been FDA approved for SurePath cervical cytology specimens. The accuracy and precision of this test for all other specimen sources has been verified in the Cytopathology Laboratory of the [facility] and has not been cleared or approved by the U.S. Food and Drug Administration. Clinical correlation is advised. CLINICAL HISTORY Date of Last Menstrual Period: Not Provided Menstrual History: Post Menopausal Other Clinical Conditions: Screening Pap SPECIMEN SOURCE A: PAP SMEAR (SUREPATH) CE Patient Name: DINO GONZALEZ : 1965 (Age: 55) Sex: F Institution: [facility] Location: [facility] Date of Collection: 02/07/2021 Date of Reported: 02/16/2021 16:14 Results to: Christal Loo MSN, BSN Christal Loo CARPENTER HELPER MAINTENANCE CYTOLOGY ORDERABLES Final Resul t SEE NARRATIVE * Outside Hepatitis C Virus Screening (01/28/2020) Hepatitis C Screening - External Neg Historical Provider LAB BLOOD ORDERABLES Hallie l Result * OUTSIDE HIV TEST (01/28/2020) HIV - External Neg Historical Provider LAB BLOOD ORDERABLES Hallie l Result * COLONOSCOPY FOR RESULT ENTRY ONLY (02/24/2016) Colonoscopy hyperplastic us Historical Provider HEALTH MAINTENANCE Edited Result - Final from Last 3 Months or Most Recently Relevant to Health Maintenance Insurance [employer]MIN[employer]AT[employer]ENEFITS ADMIN[employer]RATORS [employer]MIN[employer]AT[employer]ATORS Care Teams Fire Department Marine Engineer Relationship Specialty Start Date End Date Unknown, Unknown, MD PCP - General 07/08/23 Additional Source Comments The information contained in this document represents components of the legal health record. It is not the complete legal health record.[facility]
--- OUTSIDE RECORDS SUMMARY | 2024-12-03 14:42 | XMS_ITS | Patient Health Record ---
Author Organization [facility] Address [address] [place] [address] Care Team Providers Care Buffer Inflated Pad Name Role Phone Cinda PERRY, Christal Primary Care Provider Hector Tate [phone] Reason For Referral No Information Medications Medication SIG (Take, Route, Fr equency, Duration) Notes Start Date End Date Status Vitamin D 1000 UNIT 1 tablet Orally Once a day Active Calcium Active Problems Problem Type SNOMED Code ICD Code Onset Dates Problem Status W/U Status Risk Notes Problem [id number] Colon cancer screening (Z12.11) Active confirmed Problem 19360976 Encounter for other preprocedural examination (Z01.818) Active confirmed Plan Of Treatment Future Test Test Name Order Date COLONOSCOPY 01/12/2016 Insurance Providers Payer Name Payer Address Payer Phone Subscriber Number Group Number Insured Name Patient Relationship to Insured Coverage Start Date Coverage End Date [facility] [address] [place] [phone] [id number] WESLEY Self - patient is the insured Medical (General) History Medical History History ICD Code Denies ME,DM,CVA,Lung disease,renal dise ase Surgical History Surgery Date(Month/Year) mole removed on right hand
[2025-01-15 13:12] VITALS: BMI 35.7
--- NOTE | 2025-01-18 11:39 | P.CONAN_ITS ---
Documented by User: Pavithra Weldon NP 01/18/25 11:39 HPI - Anesthesia Eval Consult details Narrative: 59 yr old female for colonoscopy PMFSH Active Problems Active Problems: All Active Problems Difficulty concentrating (Acute) Discomfort of both ears (Acute) Hyperglycemia (Acute) Major depressive disorder, recurrent, mild (Acute) Hypercholesteremia (Acute) Osteopenia (Acute) Generalized anxiety disorder (Acute) Trigger thumb, right thumb (Acute) Trigger finger, right ring finger (Acute) Past Medical History Medical History Depression GERD (gastroesophageal reflux disease) Heart palpitations Anxiety High cholesterol Family History Family History Father High cholesterol Mother Cardiovascular disease Other Bladder cancer Diabetes Lung cancer Prostate cancer Surgical History Surgical History H/O hand surgery H/O colonoscopy H/O wisdom tooth extraction No pertinent past surgical history Social History Social History Housing: House Alcohol intake: current Patient Tobacco Use Status: Former Tobacco user Cigarettes Per Day: 5 Years Smoked: 8 e-Cigarette/Vaping Use: Never Used Use of substances other than those prescribed or required for medical reasons: No Are you DNR?: No Advance Directives: No Advance Directives Information Provided: Yes Patient : No : No Poor oral hygiene: No service: No Current occupational status: employed Current occupation: [employer] in [employer]/ [employer] Current occupational exposures/hazards: No Cognitive needs: No Hearing needs: No Vision needs: Yes (reading glasses) Meds Allergies Allergy/AdvReac Type Severity Reaction Status Date / Time No Known Allergies Allergy Verified 12/03/24 15:36 Exam Height,Weight and Vital Signs: Height 5 ft Weight 83.007 kg Airway Adult Head Mouth w/Numbe Teeth: 2 1. Missing Documented by User: Darius Turcios MD 01/19/25 07:34 FOR[facility]LY [facility], [facility] Past Medical History Medical History Depression GERD (gastroesophageal reflux disease) Heart palpitations Anxiety High cholesterol Family History Family History Father High cholesterol Mother Cardiovascular disease Other Bladder cancer Diabetes Lung cancer Prostate cancer Family history of problems with anesthesia: No Surgical History Surgical History H/O hand surgery H/O colonoscopy H/O wisdom tooth extraction No pertinent past surgical history History of Problems with Anesthesia: No Social History Social History Housing: House Alcohol intake: current Patient Tobacco Use Status: Former Tobacco user Cigarettes Per Day: 5 Years Smoked: 8 e-Cigarette/Vaping Use: Never Used Use of substances other than those prescribed or required for medical reasons: No Are you DNR?: No Advance Directives: No Advance Directives Information Provided: Yes Patient : No : No Poor oral hygiene: No service: No Current occupational status: employed Current occupation: [employer] in [employer]/ [employer] Current occupational exposures/hazards: No Cognitive needs: No Hearing needs: No Vision needs: Yes (reading glasses) Meds Allergies Allergy/AdvReac Type Severity Reaction Status Date / Time No Known Allergies Allergy Verified 12/03/24 15:36 Exam Exam Date and Time: 01/19/25 Airway Mallampati Class: II TM Dist: >3cm Neck ROM: Full Adult Head Mouth w/Numbe Teeth: 2 1. Missing Heart: RRR Lungs: CTAB Assessment and Plan Assessment Anesthesia Assessment: Anesthesia Plan Discussed and Chart Reviewed Final Anesthetic Review Family History of Problems with Anesthesia: No History of Problems with Anesthesia: No NPO: Yes ASA Class: II Final Preanesthetic Review: No Changes in Pt Med Stat, Meds/Allgs Chart Reviewed, Consent Obtained/Reviewed and Anes Risks/Benef Reviewed Patient Risk: Low Procedure Risk: Low Anesthetic Plan Anesthetic Plan: MAC: Disposition: Standard PACU
[2025-01-19 06:43] VITALS: BMI 33.4
--- NOTE | 2025-01-19 06:44 | MHC.SHP ---
Pre-Procedural Eval Section A - 24 Hr Update-Section A only Date of Service: 01/19/25 Section B - Complete if H&P > 30 days Chief Complaint: screening Relevant Family History (Specify if Yes): No Relevant Social History: None Present Medications: see Short Stay Collaborative assessment Medical History: Significant History (Depression GERD (gastroesophageal reflux disease) Heart palpitations Anxiety High cholesterol) History of Previous Operations: Relevant previous surgery/procedure and date(s) (colonoscopy) Allergies: Allergies Allergy/AdvReac Type Severity Reaction Status Date / Time No Known Allergies Allergy Verified 12/03/24 15:36 Review of Systems Sugical H&P ROS: Negative: Constitution, Cardiovascular, Respiratory, Neurological, Psychiatric, Hem-Onc, Allergic/Immunologic, Gastrointestinal, Genitourinary, Musculoskeletal, Integumentary, Endocrine and Eyes/Ears/Nose/Throat Exam Surgical H&P Exam: Normal: HEENT, Normal: Heart, Normal: Lungs, Normal: Extremities, Normal: Abdomen, Normal: Skin and Normal: Neurological Plan Diagnosis/Plan: Unchanged I have reviewed the history and physical and performed a pertinent physical examination on my patient. No changes have occurred unless specified. Time Spent With Patient Time: Total time managing care of this patient today ____ minutes.
[2025-01-19 06:48] VITALS: BP 130/78; PULSE 76; RESP 16; TEMP 36.5; O2SAT 96
[2025-01-19] MEDS: Lactated Ringers 1,000 ML 100 ML IVCONT (07:02)
--- NOTE | 2025-01-19 08:02 | P.OPN-COLO_ITS ---
Colonoscopy Operative Note Operative Note Date of Service: 01/19/25 Narrative: Operative Information Procedure Description: Colonoscopy Indication: screening Anesthesia: MAC COLONOSCOPY Instrument: Olympus variable stiffness pediatric scope 190L Colonoscopy Monitoring: Vital signs and clinical assessment, continuous EKG monitoring, Pulse oximetry, Carbon Dioxide monitoring and blood pressure monitoring were done throughout the procedure. Colon withdrawal time was 15 minutes. Procedure: The patient was placed in the left lateral decubitis position and pre-procedure medications were administered. After a digital rectal examination of the ano-rectum, the video colonoscope was inserted into the rectum and advanced through the colon to the cecum/TI. The colonoscope was slowly withdrawn in a retrograde panoramic fashion and the colon mucosa was carefully examined including a retroflexed view of the rectum. Findings and interventions are described below. Procedure Difficulty: easy Findings: Terminal Ileum-not intubated Cecum:normal Ascending Colon: in distal AC close to hepatic flexure a laterla granular spreading polyp noted about 12 mm in diameter, lifted with eleview and removed with cold snare, mild diverticulosis Transverse Colon -normal Descending Colon: 4-5 mm sessile polyp removed with cold forceps Sigmoid Colon: moderate diverticulosis, 6-8 mm sessile polyp removed with cold snare Rectum: Retroflexion with small internal hemorrhoids seen, grade I Anorectum - normal Intervention: cold snare, eleview and EMR, cold forceps Colon preparation: [place] Bowel Preparation Scale Right colon; 2 Transverse colon: 2 Left colon; 2 (0 = Unprepared colon segment with mucosa not seen due to solid stool that cannot be cleared. 1 = Portion of mucosa of the colon segment seen, but other areas of the colon segment not well seen due to staining, residual stool and/or opaque liquid. 2 = Minor amount of residual staining, small fragments of stool and/or opaque liquid, but mucosa of colon segment seen well. 3 = Entire mucosa of colon segment seen well with no residual staining, small fragments of stool or opaque liquid) Impression and Post Procedure Diagnosis: diverticulosis colon polyps x 3 internal hemorrhoids Plan: High fiber diet leaflet Avoid straining at stool, epsom salts and sitz bath, anusol supps or cream Repeat Colonoscopy in 3 years or earlier if clinically indicated Above findings were reviewed with the patient and relevant handouts were provided if indicated.
[2025-01-19 08:05] VITALS: BP 105/59; PULSE 61; TEMP 36.3; O2SAT 95
[2025-01-19 08:20] VITALS: BP 110/69; PULSE 64; RESP 20; TEMP 36.2; O2SAT 96
== END 2025-01-19 08:54 | disposition home or self-care (01) ==
PROVIDERS: PCP Physician Assistant; Visit Provider Internal Medicine Gastroenterology
PROC: 0DJD8ZZ Inspection of Lower Intestinal Tract, Via Natural or Artificial Opening Endoscopic (ICD-10-PCS; CPT 45378; principal; 2025-01-19 07:30)
DX: Z12.11 Encounter for screening for malignant neoplasm of colon (principal); D12.2 Benign neoplasm of ascending colon; D12.4 Benign neoplasm of descending colon; D12.5 Benign neoplasm of sigmoid colon; K57.30 Diverticulosis of large intestine without perforation or abscess without bleeding; K64.0 First degree hemorrhoids; K21.9 Gastro-esophageal reflux disease without esophagitis; E78.00 Pure hypercholesterolemia, unspecified; R00.2 Palpitations; F33.0 Major depressive disorder, recurrent, mild; F41.1 Generalized anxiety disorder; R41.840 Attention and concentration deficit; Z79.899 Other long term (current) drug therapy; Z87.891 Personal history of nicotine dependence
CPT/HCPCS: 45385; 45380; 45381; 88305; J2003; J2704; J3010

== ENCOUNTER → 2025-01-19 06:34 | Outpatient (BNV) | payer OTHER, SELFPAY | PROVIDERS: PCP Physician Assistant; Visit Provider Internal Medicine Gastroenterology | DX: Z12.11 Encounter for screening for malignant neoplasm of colon (principal); D12.2 Benign neoplasm of ascending colon; D12.5 Benign neoplasm of sigmoid colon; D12.4 Benign neoplasm of descending colon; K57.90 Diverticulosis of intestine, part unspecified, without perforation or abscess without bleeding; K64.0 First degree hemorrhoids | CPT/HCPCS: 45380; 45381; 45385 ==

== ENCOUNTER 2025-02-04 14:28 | Outpatient (AMB) | payer OTHER, SELFPAY ==
--- NOTE | 2025-02-04 14:22 | A.OFFPC_ITS ---
Intake Visit Reasons: meds Allergies No Known Allergies Allergy (Verified 12/03/24 15:36) Medication List - Last Reconciled 02/04/25 by Leann Ortega PA-C atorvastatin 10 mg PO DAILY bupropion HCl XL (Wellbutrin XL) 150 mg PO QAM levocetirizine 5 mg PO DAILY Tobacco use date assessed: 12/03/24 Dental Screening Dental Screen Date: 12/03/24 HPI meds HPI Details Patient is a 59-year-old female who presents today for a follow up. Psych: She is on venlafaxine 75 mg daily and doing well with this. Recently had Wellbutrin 150 mg at it. She does think this combination is working well for her. No adverse effects. Denies any SI/HI. She tolerates it well. No SI/HI. Tried Lexapro, fluoxetine, sertraline and these were ineffective. She feels like lexapro takes the edge off but it was not perfect . Colonoscopy: 01/1407-fhhlik-jeq in 3 years Mammo: 04/14, UTD Pap: 1 year ago Bone density:osteopenia- [facility] Medical History Depression GERD (gastroesophageal reflux disease) Heart palpitations Anxiety High cholesterol Surgical History H/O hand surgery H/O colonoscopy H/O wisdom tooth extraction No pertinent past surgical history Family History Father High cholesterol Mother Cardiovascular disease Other Bladder cancer Diabetes Lung cancer Prostate cancer Social History Housing: House Alcohol intake: current Patient Tobacco Use Status: Former Tobacco user Cigarettes Per Day: 5 Years Smoked: 8 e-Cigarette/Vaping Use: Never Used service: No Current occupational status: employed Current occupation: [employer] in [employer]/ [employer] Current occupational exposures/hazards: No Cognitive needs: No Hearing needs: No Vision needs: Yes (reading glasses) Questionnaire Thrive Questionnaire Date Thrive assessed: 06/24/24 I am a: Patient What is your living situation today?: I have a steady place to live Within the past 12 months, did the food you bought not last and you didn't have the money to get more?: Never true Within the past 12 months, did you worry whether your food would run out before you got money to buy more?: Never true Do you have trouble paying for medicines?: No Do you have trouble getting transportation to medical appointments?: No Do you have trouble paying your heating and electricity bill?: No Do you have trouble taking care of your child, family member or friend?: No Do you have trouble with day-to-day activities such as bathing, preparing meals, shopping, managing finances, etc.?: No Are you currently unemployed and looking for a job?: No Are you interested in more education?: No Please select the resources that you would like help with: None Currently or been in a relationship where the following occur: No concerns reported THRIVE Score: 0 JORDAN-7 AMB Questionnaire JORDAN-7 Date JORDAN - 7 assessed: 12/03/24 Source: Developed by Drs. Hector Stroud, Herminia Bullard, Gigi Tsang and colleagues, with an educational april from [employer]. Physical exam (Primary Care) Tobacco/Smoking Status: Tobacco use Status Tobacco use date assessed 12/03/24 12/03/24 15:38 Patient Tobacco Use Status Former Tobacco user 01/19/25 08:05 e-Cigarette/Vaping Use Never Used 12/03/24 15:38 Thrive Assessment: Date of Thrive Assessment Date Thrive assessed 06/24/24 01/29/25 10:07 Currently or been in a relationship where the following occur: No concerns reported Telehealth Telehealth Telehealth Platform: Telephone Location of provider rendering services: practice address Location of patient: address on file Patient Identification confirmed using: Name, : Yes Telehealth method: voice only Patient verbally consented to treatment: Yes Patient verbally consented to billing insurance company: Yes Patient informed of any privacy concerns related to visit: Yes Minutes spent on Phone/Video with Pt.: 10 Coding Level of Care Code Tele Est Pt Level 2 (07466) Diagnoses Major depressive disorder, recurrent, mild F33.0 Generalized anxiety disorder F41.1 Assessment & Plan Assessment & Plan (1) Major depressive disorder, recurrent, mild: Code(s): F33.0 - Major depressive disorder, recurrent, mild Category: Medical Plan: Continue current regimen (2) Generalized anxiety disorder: Code(s): F41.1 - Generalized anxiety disorder Category: Medical Plan: As above Medications: Refilled venlafaxine ER 75 mg PO DAILY 90 caps 3RF
--- OUTSIDE RECORDS SUMMARY | 2025-02-04 18:18 | XMS_ITS | Patient Health Record ---
Author Organization [facility] Address [address] [place] [address] Care Team Providers Care Dry Cure Worker Name Role Phone Cinda PERRY, Christal Primary Care Provider Hector Tate Unavailable [phone] Reason For Referral No Information Medications Medication SIG (Take, Route, Fr equency, Duration) Notes Start Date End Date Status Vitamin D 1000 UNIT 1 tablet Orally Once a day Active Calcium Active Problems Problem Type SNOMED Code ICD Code Onset Dates Problem Status W/U Status Risk Notes Problem Colon cancer screening (578027216) Colon cancer screening (Z12.11) Active confirmed Problem Pre-procedure evaluation check (402697879) Encounter for other preprocedural examination (Z01.818) Active confirmed Plan Of Treatment Future Test Test Name Order Date COLONOSCOPY 01/12/2016 Insurance Providers Payer Name Payer Address Payer Phone Subscriber Number Group Number Insured Name Patient Relationship to Insured Coverage Start Date Coverage End Date [facility] [address] [place] [phone] [id number] PHAMDINO WESLEY Self - patient is the insured Medical (General) History Medical History History ICD Code Denies [place],DM,CVA,Lung disease,renal dise ase Surgical History Surgery Date(Month/Year) mole removed on right hand
--- OUTSIDE RECORDS SUMMARY | 2025-02-04 18:18 | XMS_ITS | Clinical Summary ---
Author Organization [facility] Address [address] [address] Phone Care Team Providers Care Senior Risk Analyst Name Role Phone Unknown, Unknown MD Primary [...] (03/28/2023 11:42 AM EST) Christal Loo NP [facility] MAINTENA[facility]CE Final Result * (ABNORMAL) Outside Glucose,Fasting (06/08/2022) Glucose, fasting - External 103(A) 65 - 99 mg/dL Result [facility] Provider LAB BLOOD ORDERABLES Hallie l Result * Outside HDL (06/08/2022) HDL - External 64 40 - 80 mg/dL Result [facility] Provider LAB BLOOD ORDERABLES Hallie l Result * HM DEXA SCAN (05/25/2022) Christal Loo NP [facility] Edited Resul t - Final * Pap Smear (02/07/2021 12:00 AM EDT) 02/07/2021 02/08/2021 8:2 9 AM EDT Narrative SEE NARRATIVE - 02/16/2021 4:14 PM EDT [address] [address] Reading Tutor: Alma Red MD [employer] WORK DISPATCHER Cytology Report FINAL DIAGNOSIS A. PAP SMEAR [...] 52, 56, 58, 59, 66, 68) by [employer] HR-HPV analysis. Clinical correlation is advised. This HPV test was performed at [facility], [address] [place] [address]. This test has been FDA approved for [employer] cervical cytology specimens. The accuracy and precision of this test for all other specimen sources has been verified in the Cytopathology Laboratory of the [facility] and has not been cleared or approved by the U.S. Food and Drug Administration. Clinical correlation is advised. CLINICAL HISTORY Date of Last Menstrual Period: Not Provided Menstrual History: Post Menopausal Other Clinical Conditions: Screening Pap SPECIMEN SOURCE A: PAP SMEAR (SUREPATH) CE Patient Name: DINO GONZALEZ : 1965 (Age: 55) Sex: F Institution: [facility] Location: [facility] Date of Collection: 02/07/2021 Date of [...] Most Recently Relevant to Health Maintenance Insurance [employer] Member Subscriber Plan / Payer (Ef fective 2019-Present) Name:Dino Gonzalez Relation to Subscriber:Self Name:Dino Gonzalez Payer ID:[id number] (NAIC) Type:PPO Address: [place] [id number] [place] [address] [employer] Member Subscriber Plan / Payer (Ef fective 2019-Present) Name:Dino Gonzalez Relation to Subscriber:Self Name:Dino Gonzalez Payer ID:[id number] (NAIC) Type:PPO Address: [place] [id number] [place] [address] [employer] Member Subscriber Plan / Payer (Ef fective 2019-Present) Name:Dino Gonzalez Relation to Subscriber:Self Name:Dino Gonzalez Payer ID:[id number] (NAIC) Type:PPO Address: [address] [place] [address] [employer] [place] [address] [employer] [place] [address] [employer] [place] [employer] [address] [employer] Member Subscriber Plan / Payer (Ef fective 2019-Present) Name:Dino Gonzalez Relation to Subscriber:Self Name:Dino Gonzalez Payer ID:[id number] (NAIC) Type:PPO Address: [place] [id number] [place] [address] [employer] [place] [address] [employer] Care Teams Senior Risk Analyst Relationship Specialty Start Date End Date Unknown, Unknown, PCP - General 07/08/23 Additional Source Comments The information contained in this document represents components of the legal health record. It is not the complete legal health record.[facility]
--- OUTSIDE RECORDS SUMMARY | 2025-02-04 18:18 | XMS_ITS | Patient Health Record ---
Author Organization [facility] Address [address] [facility] [place] [address] Care Team Providers Care [facility] Office Supervisor Name Role Phone Cinda PERRY, Christal Primary Care Provider Nesha Jarquin Unavailable [phone] Allergies No Known Allergies Reason For Referral [...] primary osteoarthritis of the ankle and/or foot (963423165) Osteoarthritis of right ankle and foot (M19.071) Active confirmed Problem Localized, primary osteoarthritis of the ankle and/or foot (321038620) Osteoarthritis of left ankle and foot (M19.072) Active confirmed Plan Of Treatment Pending Test Test Name Order Date X ray : Foot, left 3V 08/16/2020 X ray : Foot, right 3V 08/16/2020 [id number] TENDON SHEATH/LIGAMENT 0 10/12/2020 Insurance Providers Payer Name Payer Address Payer Phone Subscriber Number Group Number Insured Name Patient Relationship to Insured Coverage Start Date Coverage End Date [employer] [address] [address] [place] [address] [id number] Marina Gonzalez Self - patient is the insured Medical (General) History Medical History History ICD Code Depression Chicken pox Surgical History Surgery Date(Month/Year)
== END 2025-02-04 14:37 | disposition home or self-care (01) ==
LOC: HO.HMCFM 14:28
PROVIDERS: PCP Physician Assistant; Visit Provider Physician Assistant
DX: F33.0 Major depressive disorder, recurrent, mild (principal); F41.1 Generalized anxiety disorder

== ENCOUNTER → 2025-03-08 11:33 | Outpatient (BNVA) | payer OTHER, SELFPAY | PROVIDERS: PCP Physician Assistant; Visit Provider Physician Assistant Medical | DX: Z13.89 Encounter for screening for other disorder (principal) | CPT/HCPCS: 73140; 99203 ==

== ENCOUNTER → 2025-03-10 14:57 | Outpatient (BNVA) | payer OTHER, SELFPAY | PROVIDERS: PCP Physician Assistant; Visit Provider Physician Assistant Medical | DX: Z13.89 Encounter for screening for other disorder (principal) | CPT/HCPCS: 99213 ==

== ENCOUNTER 2025-04-09 15:01 | Outpatient (REF) | payer OTHER, SELFPAY ==
--- NOTE | ~2025-04-09 | MM_ITS ---
EXAMINATION: MM SCREENING DIGITAL BREAST TOMOSYNTHESIS, BILATERAL CLINICAL INFORMATION: Screening. Asymptomatic. COMPARISON: Mammography: Comparison is made with available priors TECHNIQUE: Digital breast mammography with tomosynthesis is performed in both the craniocaudal and mediolateral oblique views along with computer-aided detection (CAD). FINDINGS: There are scattered areas of fibroglandular density. There are no significant masses, abnormal calcifications, or other abnormalities. MM/MM tomosynthesis screening BI IMPRESSION: No mammographic evidence of malignancy. ASSESSMENT: BI-RADS Category 1: Negative RECOMMENDATION: Routine annual mammography screening. 1 year F/U This examination should not preclude the clinical evaluation of a suspicious palpable abnormality. This patient's information was entered into a reminder system with a target due date for their next mammogram. Electronically signed by: Sravani Walton DO 04/13/2025 04:22 PM [facility]
--- OUTSIDE RECORDS SUMMARY | 2025-04-09 16:16 | XMS_ITS | Patient Health Record ---
Author Organization [facility] Address [address] [place] [address] Care Team Providers Care Astrophysics Teacher Name Role Phone Cinda PERRY, Christal Primary Care Provider Hector Tate [phone] Reason For Referral No Information Medications Medication SIG (Take, Route, Frequency, Duration) Notes Start Date End Date Status Vitamin D 1000 UNIT Tablet 1 tablet Orally Once a day Active Calcium Active Social History Social History Additional Details Category Social Info Options Details Miscellaneous: Marital status: Occupation: [address] [employer] 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 [phone] [id number] DINO PHAM Self - patient is the insured Medical (General) History Medical History History ICD Code Denies [place],DM,CVA,Lung disease,renal dise ase Surgical History Surgery Date(Month/Year) mole removed on right hand
--- OUTSIDE RECORDS SUMMARY | 2025-04-09 16:16 | XMS_ITS | Patient Health Record ---
Author Organization [facility] Address [address] [place] [address] Care Team Providers Care Experimental Mechanic Name Role Phone Cinda PERRY, Christal Primary Care Provider Nesha Jarquin Unavailable [phone] Allergies No Known Allergies Reason For Referral [...] primary osteoarthritis of the ankle and/or foot (451894067) Osteoarthritis of right ankle and foot (M19.071) Active confirmed Problem Localized, primary osteoarthritis of the ankle and/or foot (129149133) Osteoarthritis of left ankle and foot (M19.072) Active confirmed Plan Of Treatment Pending Test Test Name Order Date X ray : Foot, left 3V 08/16/2020 X ray : Foot, right 3V 08/16/2020 [id number] TENDON SHEATH/LIGAMENT 0 10/12/2020 Insurance Providers Payer Name Payer Address Payer Phone Subscriber Number Group Number Insured Name Patient Relationship to Insured Coverage Start Date Coverage End Date [employer] Benefits [address] [address] [place] [address] [id number] Marina Gonzalez Self - patient is the insured Medical (General) History Medical History History ICD Code Depression Chicken pox Surgical History Surgery Date(Month/Year)
--- OUTSIDE RECORDS SUMMARY | 2025-04-09 16:16 | XMS_ITS | Clinical Summary ---
Author Organization [facility] Address [address] [address] Phone Care Team Providers Care Health Sciences Dean Name Role Phone Unknown, Unknown MD Primary [...] (03/28/2023 11:42 AM EST) Christal Loo NP [facility] MAINTENANCE Final Result * (ABNORMAL) Outside Glucose,Fasting (06/08/2022) Glucose, fasting - External 103(A) 65 - 99 mg/dL Result [facility] Provider LAB BLOOD ORDERABLES Hallie l Result * Outside HDL (06/08/2022) HDL - External 64 40 - 80 mg/dL Result [facility] Provider LAB BLOOD ORDERABLES Hallie l Result * HM DEXA SCAN (05/25/2022) Christal Loo NP [facility] Edited Resul t - Final * Pap Smear (02/07/2021 12:00 AM EDT) 02/07/2021 02/08/2021 8:2 9 AM EDT Narrative SEE NARRATIVE - 02/16/2021 4:14 PM EDT [address] [address] Welder Oxyhydrogen: Alma Red MD MOLD [employer] P[employer] MOLDS Cytology Report FINAL DIAGNOSIS A. PAP SMEAR [...] 52, 56, 58, 59, 66, 68) by [employer] HR-HPV analysis. Clinical correlation is advised. This HPV test was performed at [facility], [address] [place] [address]. This test has been FDA approved for [...] : 1965 (Age: 55) Sex: F Institution: [facility] Location: [facility] Date of Collection: 02/07/2021 Date of [...] Most Recently Relevant to Health Maintenance Insurance [employer] Member Subscriber Plan / Payer (Ef fective 2019-Present) Name:Dino Gonzalez Relation to Subscriber:Self Name:Dino Gonzalez Payer ID:[id number] (NAIC) Type:PPO Address: [place] [id number] [employer] Member Subscriber Plan / Payer (Ef fective 2019-Present) Name:Dino Gonzalez Relation to Subscriber:Self Name:Dino Gonzalez Payer ID:[id number] (NAIC) Type:PPO Address: [place] [id number] [employer] Member Subscriber Plan / Payer (Ef fective 2019-Present) Name:Dino Gonzalez Relation to Subscriber:Self Name:Dino Gonzalez Payer ID:[id number] (NAIC) Type:PPO Address: [address] [employer] Member Subscriber Plan / Payer (Ef fective 2019-Present) Name:Dino Gonzalez Relation to Subscriber:Self Name:Dino Gonzalez Payer ID:[id number] (NAIC) Type:PPO Address: [place] [id number] [employer] Care Teams Health Sciences Dean Relationship Specialty Start Date End Date Unknown, Unknown, PCP - General 07/08/23 Additional Source Comments The information contained in this document represents components of the legal health record. It is not the complete legal health record.[facility]
== END 2025-04-09 15:02 | disposition home or self-care (01) ==
LOC: HO.MAMMO 15:01
PROVIDERS: PCP Physician Assistant; Visit Provider Physician Assistant
DX: Z12.31 Encounter for screening mammogram for malignant neoplasm of breast (principal)
CPT/HCPCS: 77063; 77067

== ENCOUNTER → 2025-04-09 15:15 | Outpatient (BNV) | payer OTHER, SELFPAY | PROVIDERS: PCP Physician Assistant; Visit Provider Internal Medicine | DX: Z12.31 Encounter for screening mammogram for malignant neoplasm of breast (principal) | CPT/HCPCS: 77063; 77067 ==